=== PATIENT | female | born 1945 | race Caucasian/White ===

== ENCOUNTER 2018-02-21 23:38 | Inpatient (IN) | payer MEDICARE ==
[2018-02-21] MEDS ORDERED: Ondansetron PF 4 MG/2 ML Vial ONE (23:58)
[2018-02-22 00:23] LABS: #Lymphocytes 2.9 thou/uL (1.20-3.40); #Monocytes 1.2 thou/uL (0.11-0.59); #Neutrophils 12.4 thou/uL (1.40-6.50); %Basophils 0.1 % (0.0-1.0); %Eosinophils 0.2 % (0.0-10.0); %Lymphocytes 17.4 % (21.0-51.0); %Monocytes 7.3 % (0.0-10.0); %Neutrophils 74.9 % (42.0-75.0); Hemoglobin 15.1 g/dL (12.0-16.0); Mean Corpuscular HGB CONC 33.4 g/dL (32.0-36.0); Mean Corpuscular Hemoglobin 29.5 pg (27.0-31.0); Mean Corpuscular Volume 88.2 fL (78.0-98.0); Mean Platelet Volume 6.8 fL (7.4-10.4); Platelet Count 461 thou/uL (130-400); RBC Distribution Width 12.8 % (11.5-14.5); Red Blood Cell (RBC) Count 5.11 mill/uL (4.20-5.40); White Blood Cell (WBC) Count 16.5 thou/uL (4.8-10.8)
[2018-02-22 00:44] LABS: ALT (SGPT) Less than 7 U/L (8-55); AST (SGOT) 7 U/L (5-34); Albumin 3.7 g/dL (3.4-4.8); Alkaline Phosphatase 126 U/L (40-150); Anion Gap 27 mmol/L (10-20); BUN (Urea Nitrogen) 27 mg/dL (9.8-20.1); Bilirubin, Total 0.2 mg/dL (0.2-1.2); CK (CPK) 61 U/L (29-168); Calc. Creatinine Clearance 0 mL/min (70-130); Calcium 10.9 mg/dL (7.8-10.44); Carbon Dioxide 12 mmol/L (23-31); Chloride 101 mmol/L (98-107); Estimated GFR-MDRD 23; Globulin 4.1 g/dL (2.4-3.5); Glucose 449 mg/dL (83-110); Potassium 3.2 mmol/L (3.5-5.1); Protein, Total 7.8 g/dL (6.0-8.3); Sodium 137 mmol/L (136-145)
[2018-02-22 00:45] LABS: Bilirubin Large (Negative); Blood, Urine Small (Negative); Clarity CLEAR (Clear); Glucose, Urine (Dipstick) >=1000 mg/dL (Negative); Leukocyte Negative (Negative); Nitrite Negative (Negative); Protein, Urine (Dipstick) 30 mg/dL (Neg-Trace); Specific Gravity, Urine 1.029 (1.002-1.036); Urobilinogen 0.2 mg/dL (0.2-1.0); pH, Urine 5.5 (5.0-9.0)
[2018-02-22 00:47] LABS: Bacteria/HPF None Seen HPF (None Seen); Hyaline Casts/LPF 4-6 HYALINE CAST LPF (0-3 Hyaline); Pathc Cast-AUWi Flag 1.01 (0-2.49); RBC/HPF 0-3 HPF (0-3); Squamous Epithelial 0-3 HPF (0-3); WBC/HPF None Seen HPF (0-3)
[2018-02-22] MEDS ORDERED: Insulin Regular 300 UNITS/3 ML VIAL ONE (00:52)
[2018-02-22 02:30] LABS: Actual Bicarbonate (HCO3a) 18.3 mEq/L (22-28); Analyzer IN Cardio ER; CO2 Tension 44.3 mmHg (35.0-45.0); Calcium, Ionized 1.37 mmol/L (1.12-1.30); Carboxyhemoglobin (COHb) 0.4 gm% (0.0-3.0); Hemoglobin (Hb) 13.5 g/dL (12.0-16.0); O2 Tension (PaO2) 67.8 mmHg (> 70.0); Potassium - ABG Lab 2.95 mmol/L (3.70-5.30); pH, Arterial 7.23 (7.35-7.45)
[2018-02-22] MEDS ORDERED: Potassium Chloride 40 MEQ in Sodium Chloride 0.9% 250 ML 250 ML IVPB SCH (02:30)
[2018-02-22] MEDS ORDERED: Potassium Chloride 40 MEQ in Sodium Chloride 0.9% 500 ML IVPB SCH (02:30)
[2018-02-22 02:31] LABS: ALV-art Gradient 26.555 (0-20); Puncture Site LRA
[2018-02-22] MEDS ORDERED: D5 1/2 NS w/20 mEq KCL 1,000 ML IV PRN (02:32)
[2018-02-22] MEDS ORDERED: Sodium Chloride 0.9% 1,000 ML IV PRN ×4 (02:32)
[2018-02-22] MEDS ORDERED: Dextrose 5 %-0.45 % NaCl 1,000 ML IV PRN (02:32)
[2018-02-22] MEDS ORDERED: NS 0.9% w/ 20 MEQ KCL 1,000 ML IV PRN ×2 (02:32)
[2018-02-22] MEDS ORDERED: Acetaminophen 325 MG TAB PO PRN (02:32)
[2018-02-22] MEDS ORDERED: Ondansetron ODT 4 MG TAB PO PRN (02:32)
[2018-02-22] MEDS ORDERED: CCU Electrolyte Replacement 1 EACH IVPB ONE (02:32)
--- NOTE | 2018-02-22 02:42 | PDOC.FPRHP ---
- History of Present Illness Chief Complaint: DKA History of Present Illness: This is a 72 yo female with a pmh of DM2 who presents to the ed with a cc of lethargy and malaise. She states that she has been feeling bad for approximately 2-3 weeks at this point. She reports checking her sugar this morning and it being in the 500s. Her states that he gave her 70 units of an unknown insulin which did not correct her sugar and they then decided to come in. Pt reports not seeing the doctor or not taking medications for over 2 years. Her states she just did not want to do it. ED Course: 2 L NS bolus, 8 units of humulin R - Allergies/Adverse Reactions Allergies Allergy/AdvReac Type Severity Reaction Status Date / Time codeine Allergy Unverified 02/22/18 02:03 morphine Allergy Unverified 02/22/18 02:03 - History PMHx: DM 2 PSHx: Hysterectomy, cholecystectomy FHx:noncontributory Social: Denies A/D, reports current tobacco use - Review of Systems General: reports: fatigue, other (malaise). denies: fever/chills, weight/ appetite/sleep changes, night sweats Eyes: denies: eye pain, vision changes ENT: denies: nasal congestion, rhinorrhea Respiratory: denies: cough, congestion Cardiovascular: denies: chest pain, palpitation Gastrointestinal: denies: nausea, vomiting, diarrhea, constipation Skin: denies: rashes, lesions Musculoskeletal: denies: pain, tenderness Neurological: denies: numbness, syncope Psychological: denies: anxiety, depression - Vital signs BP: 115/67 HR: 100 RR: 19 Tmax: 97.6 Pox: 95% on ra Wt: 81 kg - Physical Exam Constitutional: NAD, other (appears lethargic) HEENT: normocephalic and atraumatic, other (dry mucus membranes) Neck: trachea midline, no JVD Chest: no-tender to palpation Heart: RRR, normal S1/S2, other (holosystolic murmur) Lungs: CTAB, good air movement, other (kussmaul breathing) Abdomen: soft, non-tender, bowel sounds present, no masses/distention Musculoskeletal: ROM grossly normal Neurological: no focal deficit Skin: other (poor turgor) Heme/Lymphatic: no unusual bruising or bleeding, no purpura Psychiatric: normal mood and affect, good judgment and insight FMR H&P: Results - Labs Result Diagrams: 02/22/18 03:39 02/22/18 03:39 Lab results: WBC 16.5 thou/uL (4.8-10.8) H 02/22/18 00:14 Hgb 15.1 g/dL (12.0-16.0) 02/22/18 00:14 Hct 45.1 % (36.0-47.0) 02/22/18 00:14 MCV 88.2 fL (78.0-98.0) 02/22/18 00:14 Plt Count 461 thou/uL (130-400) H 02/22/18 00:14 Neutrophils % 74.9 % (42.0-75.0) 02/22/18 00:14 ABG pH 7.23 (7.35-7.45) L* 02/22/18 02:20 ABG pCO2 44.3 mmHg (35.0-45.0) 02/22/18 02:20 ABG pO2 67.8 mmHg (> 70.0) 02/22/18 02:20 Sodium 137 mmol/L (136-145) 02/22/18 00:14 Potassium 3.2 mmol/L (3.5-5.1) L 02/22/18 00:14 Chloride 101 mmol/L (98-107) 02/22/18 00:14 Carbon Dioxide 12 mmol/L (23-31) L 02/22/18 00:14 BUN 27 mg/dL (9.8-20.1) H 02/22/18 00:14 Creatinine 2.15 mg/dL (0.6-1.1) H 02/22/18 00:14 Glucose 449 mg/dL (83-110) H 02/22/18 00:14 Lactic Acid 2.4 mmol/L (0.5-2.2) H 02/22/18 00:04 Calcium 10.9 mg/dL (7.8-10.44) H 02/22/18 00:14 Total Bilirubin 0.2 mg/dL (0.2-1.2) 02/22/18 00:14 AST 7 U/L (5-34) 12/21/18 00:14 ALT Less than 7 U/L (8-55) L 18 00:14 Alkaline Phosphatase 126 U/L (40-150) 02/22/18 00:14 Creatine Kinase 61 U/L (29-168) 02/22/18 00:14 Serum Total Protein 7.8 g/dL (6.0-8.3) 18 00:14 Albumin 3.7 g/dL (3.4-4.8) 02/22/18 00:14 Urine Ketones > or equal to 80 mg/dL (Negative) H 02/22/18 00:35 Urine Blood Small (Negative) H 02/22/18 00:35 Urine Nitrite Negative (Negative) 02/22/18 00:35 Ur Leukocyte Esterase Negative (Negative) 02/22/18 00:35 Urine RBC 0-3 HPF (0-3) 02/22/18 00:35 Urine WBC None Seen HPF (0-3) 02/22/18 00:35 Ur Squamous Epith Cells 0-3 HPF (0-3) 02/22/18 00:35 Urine Bacteria None Seen HPF (None Seen) 02/22/18 00:35 - Radiology Interpretation CT scan - head Status: image reviewed by me (no acute, abnormal intracranial process) FMR H&P: A/P - Problem List (1) DKA (diabetic ketoacidoses) Current Visit: Yes Status: Acute Code(s): E13.10 - OTH DIABETES MELLITUS WITH KETOACIDOSIS WITHOUT COMA Qualifiers: Diabetes mellitus type: type 2 (2) Type 2 diabetes mellitus Current Visit: Yes Status: Acute (3) Hypokalemia Current Visit: Yes Status: Acute Code(s): E87.6 - HYPOKALEMIA (4) ALEE (acute kidney injury) Current Visit: Yes Status: Acute Code(s): N17.9 - ACUTE KIDNEY FAILURE, UNSPECIFIED - Plan This is a 72 yo female with a pmh of DM2 DKA -Admit to IMCU -Initial anion gap of 24, bicarb 12, glucose 480, potassium of 3.2 -Pt received 2 L NS bolus and 8 units of humulin R in the ED -Correct hypokalemia -Start DKA protocol -Monitor BMP Hypokalemia -IV replacement -Monitor BMP ALEE -IVF resussication DM2 -Start long acting insulin once anion gap closes Code: DNAR Prophylaxis: heparin Family: at bedside and plan discussed with him Disposition: home in 1-2 days FMR H&P: Upper Level - Pertinent history 72F presenting for lethargy after not eating for two days. The patients reports her daughter two days ago and since that time she has been very somnolent and withdrawn. She reports that she stopped going to her PCP, Dr. Neff, over two years ago. She abruptly stopped taking all of her medications at that time, which included metformin, glipizide, and insulin. She has not taken any insulin in over two years, nor has she seen a healthcare provider in that interval. She denies any other PMH. ED: 2L NS, 8u insulin, 8mg Zofran - Pertinent findings WBC: 16.5 Na: 137 K: 3.2 Bicarb: 12 A BUN/Cr: 27/2.15 Glu: 449 LA: 2.4 AB.23/44/67 beta-HB: 6.4 - Plan Date/Time: 02/22/18 0241 IChristopher, have evaluated this patient and agree with findings/plan as outlined by rn internal medicine resident. Pertinent changes/additions are listed here. DKA: admit to [facility] for DKA protocol. reports he injected patient with 70u of his insulin at home before coming to ED. It is unknown what type of insulin this was. We will check another BMP after giving KCl. If anion gap persists will start insulin gtt with BMPs q2h. Hypokalemia: replete with 40 mEq now and continue per protocol. Monitor with BMPs q2h ALEE: unknown baseline level of kidney function. Expect improvement with IVF overnight.
[2018-02-22 02:46] LABS: ALT (SGPT) 9 U/L (8-55); AST (SGOT) 10 U/L (5-34); Albumin 3.3 g/dL (3.4-4.8); Alkaline Phosphatase 107 U/L (40-150); Anion Gap 23 mmol/L (10-20); BUN (Urea Nitrogen) 26 mg/dL (9.8-20.1); Bilirubin, Total 0.2 mg/dL (0.2-1.2); Calc. Creatinine Clearance 0 mL/min (70-130); Calcium 9.7 mg/dL (7.8-10.44); Carbon Dioxide 12 mmol/L (23-31); Chloride 107 mmol/L (98-107); Estimated GFR-MDRD 30; Globulin 3.2 g/dL (2.4-3.5); Glucose 305 mg/dL (83-110); Potassium 3.5 mmol/L (3.5-5.1); Protein, Total 6.5 g/dL (6.0-8.3); Sodium 138 mmol/L (136-145)
[2018-02-22] MEDS ORDERED: Potassium Chloride 40 MEQ in Premix Bag 1 BAG IVPB PRN (02:49)
[2018-02-22] MEDS ORDERED: Magnesium Oxide 400 MG TAB PO PRN ×2 (02:49)
[2018-02-22] MEDS ORDERED: Potassium Phosphate 12 MMOL in Sodium Chloride 0.9% 250 ML 250 ML IV PRN (02:49)
[2018-02-22] MEDS ORDERED: Potassium Phosphate 15 MMOL in Sodium Chloride 0.9% 250 ML 250 ML IV PRN (02:49)
[2018-02-22] MEDS ORDERED: Magnesium 2 GM/NS 0.9% 100 ML 2 GM in Premix Bag 1 BAG IVPB PRN (02:49)
[2018-02-22] MEDS ORDERED: Potassium Phosphate 9 MMOL in Sodium Chloride 0.9% 100 ML IVPB PRN (02:49)
[2018-02-22] MEDS ORDERED: Potassium Chloride 20 MEQ TAB PO PRN (02:49)
[2018-02-22] MEDS ORDERED: Potassium Chloride 40 MEQ in Sodium Chloride 0.9% 250 ML 250 ML IVPB PRN (02:49)
[2018-02-22] MEDS ORDERED: CCU ELECTROLYTE REPLACEMENT PROTOCOL FS PRN (02:49)
--- NOTE | 2018-02-22 03:00 | PDOC.EVN ---
Addendum - Attending - Attending Attestation Date/Time: 02/22/18 0256 I personally evaluated the patient and discussed the management with Dr. Carl /Pedro. I agree with the History, Examination, Assessment and Plan documented in their electronic H&P with any addition or exceptions noted below. Patient with history of uncontrolled T2DM who has been off hypoglycemic medications for near 2 years here with increasing lethargy, malaise, and elevated blood glucose. Per history, she recently lost her daughter and has not had much of an appetite. Blood sugar found to be elevated today, EMS called for transport to ER. gave some of his SQ insulin at home prior to arrival. Exam and laboratory studies are consistent with DKA likely in the setting of medication noncompliance and uncontrolled T2DM. No current evidence for infection as cause of trigger. Will admit to IMCU, begin on DKA protocol. WIll need to monitor K closely as she is borderline hypokalemic. Gap and acidosis improved some without IV insulin likely due to the bolus she received at home SQ. Will continue accuchecks, BMP monitoring. NPO until resolved. Will need to be restarted on anti-diabetic agents as well as receive diabetic teaching. She is hemodynamically stable at this time. Patient is DNR.
[2018-02-22 03:47] LABS: #Basophils 0.1 thou/uL (0.0-0.2); #Lymphocytes 3.7 thou/uL (1.20-3.40); #Monocytes 1.9 thou/uL (0.11-0.59); #Neutrophils 10.6 thou/uL (1.40-6.50); %Basophils 0.8 % (0.0-1.0); %Eosinophils 0.2 % (0.0-10.0); %Lymphocytes 22.5 % (21.0-51.0); %Monocytes 11.4 % (0.0-10.0); %Neutrophils 65.2 % (42.0-75.0); Hemoglobin 13.8 g/dL (12.0-16.0); Mean Corpuscular HGB CONC 33.9 g/dL (32.0-36.0); Mean Corpuscular Hemoglobin 29.4 pg (27.0-31.0); Mean Corpuscular Volume 86.8 fL (78.0-98.0); Mean Platelet Volume 6.5 fL (7.4-10.4); Platelet Count 404 thou/uL (130-400); RBC Distribution Width 12.7 % (11.5-14.5); Red Blood Cell (RBC) Count 4.67 mill/uL (4.20-5.40); White Blood Cell (WBC) Count 16.3 thou/uL (4.8-10.8)
[2018-02-22 04:04] LABS: Anion Gap 18 mmol/L (10-20); BUN (Urea Nitrogen) 22 mg/dL (9.8-20.1); Calc. Creatinine Clearance 0 mL/min (70-130); Carbon Dioxide 15 mmol/L (23-31); Chloride 107 mmol/L (98-107); Estimated GFR-MDRD 30; Glucose 245 mg/dL (83-110); Potassium 3.3 mmol/L (3.5-5.1); Sodium 137 mmol/L (136-145)
[2018-02-22] MEDS ORDERED: Insulin Glargine 15 UNITS in Pre-Filled Syringe 1 EACH SC SCH (04:30)
[2018-02-22 06:30] LABS: Lactic Acid 1.8 mmol/L (0.5-2.2)
[2018-02-22 06:46] LABS: Chloride 110 mmol/L (98-107); Potassium 3.3 mmol/L (3.5-5.1); Sodium 140 mmol/L (136-145)
[2018-02-22 06:47] LABS: Calcium 9.9 mg/dL (7.8-10.44); Glucose 175 mg/dL (83-110)
[2018-02-22 06:49] LABS: Anion Gap 16 mmol/L (10-20); Carbon Dioxide 17 mmol/L (23-31)
[2018-02-22 06:51] LABS: BUN (Urea Nitrogen) 21 mg/dL (9.8-20.1); Calc. Creatinine Clearance 0 mL/min (70-130); Estimated GFR-MDRD 34
--- NOTE | 2018-02-22 08:58 | CT ---
PRELIMINARY REPORT/[facility]/EMERGENTY AFTER-HOURS PROCEDURE CT Head Without Contrast EXAM DATE/TIME: 02/22/2018 12:26 AM CLINICAL HISTORY: 72 years old, female; Pain; Headache; Headache not specified; Patient HX: F 72 presents to ed with hy perglycemia d stick for ems 485. states that PT has not eaten in the past few days due to the pt's daughter passing away. PT received 80 units at 20: 00 and another 20 units at 2200. PT states that she feels "rotten" and denies pain. Reports nausea but has not vomited this evening. PT i s t 1 dm but has not been on any medications for the past 2 years. reports weakness and some disorientation. TECHNIQUE: Axial computed tomography images of the head/brain without contrast. COMPARISON: No relevant prior studies available. FINDINGS: Brain: No evidence of acute large vessel infarction. No evidence of acute intracranial hemorrhage, ex traxial fluid or midline shift. Mild low density changes within the white matter bilaterally. Cerebel lum atrophic; otherwise, posterior fossa structures within normal limits. Ventricles: Mild prominence of the cerebral sulci and ventricles. Bones/joints: Normal. No acute fracture. Sinuses: Normal as visualized. No acute sinusitis. Mastoid air cells: Normal as visualized. No mastoid effusion. Soft tissues: Normal. IMPRESSION: 1. No evidence of acute large vessel infarction. 2. No evidence of acute intracranial hemorrhage, extraxial fluid or midline shift. 3. Mild cerebral atrophy. 4. 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 Thank you for allowing us to participate in the care of your patient. Dictated and Authenticated by: Stef Drummond MD 02/22/2018 1:25 AM Central Time ([place] & [place]) FINAL REPORT CT BRAIN WITHOUT CONTRAST: Date: 02/21/18 FINDINGS/IMPRESSION: I agree with the preliminary report given by Sandhya. POS: OFF
[2018-02-22] MEDS ORDERED: Heparin 5,000 UNITS/ML VIAL SC SCH (09:00)
[2018-02-22 09:14] LABS: Chloride 111 mmol/L (98-107); Potassium 3.4 mmol/L (3.5-5.1); Sodium 140 mmol/L (136-145)
[2018-02-22 09:15] LABS: Calcium 9.9 mg/dL (7.8-10.44); Glucose 212 mg/dL (83-110)
[2018-02-22 09:17] LABS: Anion Gap 14 mmol/L (10-20); Carbon Dioxide 18 mmol/L (23-31)
[2018-02-22 09:19] LABS: BUN (Urea Nitrogen) 19 mg/dL (9.8-20.1); Calc. Creatinine Clearance 0 mL/min (70-130); Estimated GFR-MDRD 37
[2018-02-22] MEDS: Heparin 5,000 UNITS/ML VIAL SC SCH ×3 (11:40→20:51)
[2018-02-22] MEDS: Sodium Chloride 0.9% 1,000 ML IV SCH ×3 (11:43→20:50)
[2018-02-22 13:37] LABS: Anion Gap 13 mmol/L (10-20); BUN (Urea Nitrogen) 15 mg/dL (9.8-20.1); Calc. Creatinine Clearance 48 mL/min (70-130); Calcium 9.9 mg/dL (7.8-10.44); Carbon Dioxide 19 mmol/L (23-31); Chloride 114 mmol/L (98-107); Estimated GFR-MDRD 39; Glucose 208 mg/dL (83-110); Potassium 3.7 mmol/L (3.5-5.1); Sodium 142 mmol/L (136-145)
[2018-02-22] MEDS: Insulin Glargine 5 UNITS in Pre-Filled Syringe SC SCH (20:52)
[2018-02-23] MEDS: Sodium Chloride 0.9% 1,000 ML IV SCH ×4 (00:35→17:59)
--- NOTE | 2018-02-23 06:02 | PDOC.FM ---
- Subjective Subjective: 72 yo female seen at bedside this AM. Her is present for interview. Patient and her are not ideal historians. Patient's only medication she is supposed to be on is glipizide and insulin per the . However, she has not taken insulin in 2 years. Patient is wanting to go home this AM. Patient denies abdominal pain, chest pain, sob, n/v/d, or fevers. No other complaints this AM. - Objective MAR Reviewed: Yes Vital Signs & Weight: Vital Signs (12 hours) Temp Pulse Resp BP Pulse Ox 02/23/18 04:00 97.5 F L 92 17 127/55 L 94 L 02/23/18 00:31 97.2 F L 90 18 121/61 93 L 02/22/18 20:00 94 L 02/22/18 19:29 97.8 F 97 19 155/92 H 93 L Weight Weight 80.104 kg I&O: 02/21/18 02/22/18 02/23/18 06:59 06:59 06:59 Intake Total 1393 Output Total 350 Balance 1043 Result Diagrams: 02/22/18 03:39 02/23/18 07:35 Phys Exam - Physical Examination Constitutional: NAD HEENT: moist MMs Respiratory: no wheezing, clear to auscultation bilateral Cardiovascular: RRR 3/6 holosystolic murmur present Gastrointestinal: soft, non-tender, no distention, positive bowel sounds Musculoskeletal: no edema, pulses present Neurological: moves all 4 limbs Psychiatric: A&O x 3 Skin: no rash, cap refill <2 seconds Dx/Plan (1) DKA (diabetic ketoacidoses) Code(s): E13.10 - OTH DIABETES MELLITUS WITH KETOACIDOSIS WITHOUT COMA Status : Resolved Qualifiers: Diabetes mellitus type: type 2 (2) ALEE (acute kidney injury) Code(s): N17.9 - ACUTE KIDNEY FAILURE, UNSPECIFIED Status: Acute (3) Type 2 diabetes mellitus Status: Acute (4) Hypokalemia Code(s): E87.6 - HYPOKALEMIA Status: Resolved (5) Heart murmur Code(s): R01.1 - CARDIAC MURMUR, UNSPECIFIED Status: Acute - Plan Plan: DKA - Resolved - Admitted to IMCU, likely stable for transfer to floor today - Initial anion gap of 24, bicarb 12, glucose 480, potassium of 3.2 - DKA protocol discontinued - Monitor BMP pending this AM Hypokalemia - IV and oral replacement - Monitor BMP pending this AM ALEE - IVF - Repeat pending this AM DM2 - Seems poorly controlled - Glargine @ HS 5 u - Will initiate sliding scale insulin to determine insulin requirements throughout today - Will need to titrate up for better control - Will need close outpatient follow up Heart Murmur - Family is unaware - Asymptomatic - Will order ECHO to further work up Disposition: Stable, will likely be transferred to medical floor this AM. Addendum - Attending - Attending Attestation Date/Time: 02/23/18 1759 I personally evaluated the patient and discussed the management with Dr. Thomas I agree with the History, Examination, Assessment and Plan documented above with any addition or exceptions noted below- Patient without complaints. Afebrile VSS. A/P: DKA- resolved; started on basal insulin; continue sliding scale. Transfer to medical and continue to titrate insulin. 2) ALEE- resolved.
[2018-02-23] MEDS ORDERED: Dextrose 50% Abboject 50 ML SYRINGE SLOW IVP PRN (06:52)
[2018-02-23] MEDS ORDERED: HumaLOG 300 UNITS/3 ML VIAL SC PRN (06:52)
[2018-02-23] MEDS ORDERED: Dextrose 5% in Water 1,000 ML IV PRN (06:52)
[2018-02-23 08:19] LABS: Anion Gap 12 mmol/L (10-20); BUN (Urea Nitrogen) 8 mg/dL (9.8-20.1); Calc. Creatinine Clearance 66 mL/min (70-130); Carbon Dioxide 20 mmol/L (23-31); Chloride 111 mmol/L (98-107); Estimated GFR-MDRD 55; Glucose 187 mg/dL (83-110); Potassium 3.3 mmol/L (3.5-5.1); Sodium 140 mmol/L (136-145)
[2018-02-23] MEDS: Heparin 5,000 UNITS/ML VIAL SC SCH ×3 (09:50→21:08)
[2018-02-23] MEDS ORDERED: Potassium Chloride 20 MEQ TAB PO SCH (12:30)
[2018-02-23] MEDS: Insulin Glargine 5 UNITS in Pre-Filled Syringe SC SCH (21:06)
[2018-02-24] MEDS: Sodium Chloride 0.9% 1,000 ML IV SCH ×3 (02:56→09:23)
--- NOTE | 2018-02-24 06:07 | PDOC.FM ---
- Subjective Subjective: 72 yo female seen at bedside this AM. Per nursing staff it was communicated to keep her glucose around 200 and so sliding scale insulin doses were not given. Patient states she is ready to go home, but is agreeable to staying until it would be safe to go home. Patient denies any chest pain, n/v/d, fevers, chills, or cough. Her states she was up and walking and being successful doing that. No other complaints. - Objective Vital Signs & Weight: Vital Signs (12 hours) Temp Pulse Resp BP BP Pulse Ox 02/24/18 00:00 97.8 F 79 16 96/62 95 02/23/18 20:00 98.1 F 85 18 121/64 94 L Weight Admit Weight 82.191 kg Weight 82.191 kg I&O: 02/22/18 02/23/18 02/24/18 06:59 06:59 06:59 Intake Total 3993 560 Output Total 1040 Balance 2953 560 Result Diagrams: 02/22/18 03:39 02/24/18 07:54 Phys Exam - Physical Examination Constitutional: NAD HEENT: moist MMs Neck: supple, full ROM Respiratory: no wheezing, clear to auscultation bilateral Cardiovascular: RRR 3/6 holosystolic murmur present Gastrointestinal: soft, non-tender, no distention, positive bowel sounds Musculoskeletal: no edema, pulses present Neurological: non-focal, normal sensation, moves all 4 limbs Psychiatric: A&O x 3 Skin: no rash Dx/Plan (1) DKA (diabetic ketoacidoses) Code(s): E13.10 - OTH DIABETES MELLITUS WITH KETOACIDOSIS WITHOUT COMA Status : Resolved Qualifiers: Diabetes mellitus type: type 2 (2) ALEE (acute kidney injury) Code(s): N17.9 - ACUTE KIDNEY FAILURE, UNSPECIFIED Status: Resolved (3) Type 2 diabetes mellitus Status: Acute (4) Hypokalemia Code(s): E87.6 - HYPOKALEMIA Status: Resolved (5) Heart murmur Code(s): R01.1 - CARDIAC MURMUR, UNSPECIFIED Status: Acute - Plan Plan: DKA - Resolved - Admitted to IM and transferred to medical floor - Initial anion gap of 24, bicarb 12, glucose 480, potassium of 3.2 - DKA protocol discontinued Hypokalemia - IV and oral replacement - Monitor BMP pending this AM ALEE - IVF - Repeat pending this AM DM2 - Seems poorly controlled - Glargine @ HS 5 u - Nursing staff did not give sliding scale insulin per protocol on 02/23 - Will schedule 3u of insulin with meals to attempt better control - Will need to titrate up for better control - Will need close outpatient follow up Heart Murmur - Family is unaware - Asymptomatic - ECHO taken, but not read at this time - Will follow up with results. Disposition: Stable, will continue current plan of care. Patient is a possible discharge for today. Addendum - Attending - Attending Attestation Date/Time: 02/24/18 1032 I personally evaluated the patient and discussed the management with Dr. Thomas I agree with the History, Examination, Assessment and Plan documented above with any addition or exceptions noted below- Patient without complaints. Denies any CP/SOB/palpitations. Afebrile P160 BP 128/99 Exam repeated by me and significant for irr, irr rhythm with rapid rate. A/P: 1) New onset A-fib- code green called this morning for tachycardia; vitals stable apart from heart rate in 160-180s. Pt transferred to [facility] and started on cardizem drip. Replace electrolytes. Cardiology consulted. Start anticoagulation. Trend troponins. 2) type 2 DM- Did not receive sliding scale yesterday. Continue lantus; started on pre-meal with sliding scale.
[2018-02-24] MEDS: HumaLOG 300 UNITS/3 ML VIAL SC SCH ×3 (06:51→16:46)
[2018-02-24 08:26] LABS: Anion Gap 14 mmol/L (10-20); BUN (Urea Nitrogen) 5 mg/dL (9.8-20.1); Calc. Creatinine Clearance 79 mL/min (70-130); Calcium 8.7 mg/dL (7.8-10.44); Carbon Dioxide 17 mmol/L (23-31); Chloride 107 mmol/L (98-107); Estimated GFR-MDRD 68; Glucose 297 mg/dL (83-110); Sodium 135 mmol/L (136-145)
[2018-02-24] MEDS ORDERED: Enoxaparin Sodium 80 MG/0.8 ML SYRINGE SC SCH (09:03)
[2018-02-24] MEDS ORDERED: Diltiazem 125 MG in Sodium Chloride 0.9% 100 ML IVPB SCH (09:03)
[2018-02-24] MEDS ORDERED: Magnesium 2 GM/50 ML 2 GM in Premix Bag 1 BAG IVPB SCH (09:45)
--- NOTE | 2018-02-24 09:54 | PDOC.EVN ---
Event Note - Event Note Event Note: MELITA HERNÁNDEZ called to patient's room due to elevated HR. EKG showed A-fib with RVR. Patient was asymptomatic with normotensive BP. HR was in 170-200s. She denied chest pain, sob, lightheadedness, or feeling palpitations. Patient was immediately transferred to IMCU for Diltiazem bolus and drip. Patient also had Troponins, Mg, and ECHO ordered at time of code. Cardiology and Dr. Albright will be consulted for further management and evaluation. Dr. Jovel was present during code and is in agreement with plan.
[2018-02-24 10:06] LABS: CKMB 13.3 ng/mL (0-6.6)
[2018-02-24] MEDS: Enoxaparin Sodium 80 MG/0.8 ML SYRINGE SC SCH ×2 (10:07→20:57)
[2018-02-24] MEDS: HumaLOG 300 UNITS/3 ML VIAL SC PRN (10:11)
[2018-02-24] MEDS: Potassium Chloride 20 MEQ in Premix Bag 1 BAG IVPB SCH ×2 (10:12→14:37)
[2018-02-24] MEDS: Heparin 5,000 UNITS/ML VIAL SC SCH (10:39)
[2018-02-24] MEDS ORDERED: Amiodarone 150 MG in Dextrose 5% in Water 100 ML IVPB SCH (12:45)
[2018-02-24] MEDS: Amiodarone 450 MG in Dextrose 5% in Water 250 ML IVPB SCH ×2 (13:41→23:59)
[2018-02-24] MEDS ORDERED: Potassium Chloride 20 MEQ TAB PO SCH (14:15)
[2018-02-24 15:43] LABS: Troponin I 1.451 ng/mL (< 0.028)
[2018-02-24 18:25] LABS: Critical Call Chem Troponin I RESULT DECREASING; Troponin I 1.383 ng/mL (< 0.028)
[2018-02-24] MEDS ORDERED: Digoxin 0.5 MG/2 ML AMP SLOW IVP SCH (20:30)
[2018-02-24] MEDS: Insulin Glargine 5 UNITS in Pre-Filled Syringe SC SCH (20:56)
[2018-02-24 21:14] LABS: Troponin I 1.465 ng/mL (< 0.028)
--- NOTE | 2018-02-25 00:26 | CON ---
DATE OF CONSULTATION: HISTORY OF PRESENT ILLNESS: Cecelia Novoa is a 72-year-old white female with history of diabetes, however, she has not really taken any medications nor seen a doctor for several years. She denies ever having any chest, arm, neck, or jaw discomfort, but does have dyspnea on exertion, which the states started to really become bad ove the last 1 and 1-1/2 years. She has been feeling bad for several weeks and her took the blood sugar, it was 500. She came to the emergency room, was found to be in diabetic ketoacidosis and has been treated for that. Initially, she was on telemetry and was in sinus rhythm and then transferred to medical; however, developed a rapid heart rate. EKG shows atrial fibrillation with the rate of 170 per minute. She was then transferred back to telemetry. She is unaware of her heart beating rapidly. She only complains of dyspnea on exertion. PAST MEDICAL HISTORY: Diabetes. PAST SURGICAL HISTORY: Hysterectomy, cholecystectomy. MEDICATIONS AT HOME: None. ALLERGIES: 1. CODEINE. 2. MORPHINE. SOCIAL HISTORY: She smoked 2 packs per day until 2 to 3 weeks ago when she started feeling poorly. REVIEW OF SYSTEMS: 12-point review of systems is otherwise unremarkable. PHYSICAL EXAMINATION: VITAL SIGNS: Blood pressure 97/70, pulse of 158. HEENT: PERRL. NECK: Supple. CHEST: Reveals distant breath sounds. CARDIOVASCULAR: The patient has irregular rapid tachycardia. There is a 2/6 systolic ejection murmur along the left sternal border. ABDOMEN: Normal bowel sounds without tenderness or organomegaly. EXTREMITIES: Reveal 1+ pretibial edema. NEUROLOGICAL: Grossly intact, although the patient is somewhat lethargic. LABORATORY DATA: EKG reveals atrial fibrillation with rate of 170 per minute with nonspecific ST and T-wave changes. Echocardiogram revealed ejection fraction of 55% to 60% with evidence for diastolic dysfunction, mitral annular calcification, severe aortic stenosis with peak gradient of 88 mm, mean gradient of 53 mm and aortic valve area of 0.73 cm2, moderate aortic insufficiency, [id number] tricuspid regurgitation. Hemoglobin 13.8, hematocrit 40.6, white count 16,300, platelets 404,000. On admission, creatinine was 2.15, BUN 27. Creatinine is improved to 0.83, BUN from 27 to 5. TSH is normal with development of atrial fibrillation. Troponin I's have been checked and the most elevated one is 1.451. IMPRESSION: 1. Atrial fibrillation with fast ventricular response. The patient has been anticoagulated with 1 mg/kg of Lovenox b.i.d. She is currently on a Cardizem drip and amiodarone drip. 2. Severe aortic stenosis with exertional dyspnea for 1 and 1-1/2 years. 3. Diabetes. 4. Unknown cholesterol status. 5. Status post diabetic ketoacidosis. 6. Acute kidney injury, resolved. 7. Smoker. PLAN: The patient will be given intravenous digoxin 0.5 mg IV and another 6- hour 0.25 mg IV to try to slow her rate. Her most significant underlying problem, however, is the severe aortic stenosis with exertional dyspnea over the last 1 and 1-1/2 years. Certainly, her risk of sudden over the next 1 to 2 years is very high. She currently is DNR and all of this will need to be discussed at length over the next day or two to see what she would decide to do and how aggressive to be regarding her aortic stenosis. Job ID: [id number] [facility] HOSPITALOdalis
[2018-02-25] MEDS ORDERED: Digoxin 0.5 MG/2 ML AMP SLOW IVP SCH ×2 (03:00→15:45)
[2018-02-25 05:16] LABS: Anion Gap 15 mmol/L (10-20); BUN (Urea Nitrogen) 5 mg/dL (9.8-20.1); Calc. Creatinine Clearance 82 mL/min (70-130); Calcium 9.3 mg/dL (7.8-10.44); Carbon Dioxide 19 mmol/L (23-31); Cardiac Risk 4.7 (Less than 4.5); Chloride 104 mmol/L (98-107); Cholesterol 185 mg/dl (< 200 Desired); Estimated GFR-MDRD 71; Glucose 287 mg/dL (83-110); HDL Cholesterol 39 mg/dL (>60 Neg Risk); LDL Cholesterol, Calculated 116 mg/dL; Potassium 3.9 mmol/L (3.5-5.1); Sodium 134 mmol/L (136-145); Triglycerides 148 mg/dL (Less than 150)
[2018-02-25] MEDS: HumaLOG 300 UNITS/3 ML VIAL SC PRN (06:06)
--- NOTE | 2018-02-25 06:22 | PDOC.FM ---
- Subjective Subjective: 72 yo female seen at bedside this AM with her present. Patient had no acute changes overnight. She has been up and walking around. She has no real complaints. Patient states that she is wanting to go home. She did see Dr. Albright last night around 20:00. Patient and her state that they will be discussing her in the future to make decisions as far as treatment is concerned. Patient denied chest pain, sob, n/v/d, or weakness. No other complaints. - Objective Vital Signs & Weight: Vital Signs (12 hours) Temp Pulse Resp BP BP Pulse Ox 02/25/18 04:50 97.2 F L 149 H 12 143/99 H 97 02/25/18 03:08 141 H 02/25/18 00:17 98.4 F 141 H 16 115/52 L 99 02/24/18 20:56 163 H 02/24/18 19:59 98.4 F 158 H 22 H 97/70 96 02/24/18 19:57 98 Weight Admit Weight 82.191 kg Weight 82.599 kg I&O: 02/23/18 02/24/18 02/25/18 06:59 06:59 06:59 Intake Total 3993 2360 1968 Output Total 1040 400 Balance 2953 2360 1568 Result Diagrams: 02/22/18 03:39 02/25/18 04:37 Phys Exam - Physical Examination Constitutional: NAD HEENT: moist MMs Neck: supple, full ROM Respiratory: no wheezing, clear to auscultation bilateral Cardiovascular: irregular Tachycardic. 2/6 SHANTA left sternal border Gastrointestinal: soft, non-tender, no distention, positive bowel sounds Musculoskeletal: pulses present 1+ edema bilaterally Neurological: moves all 4 limbs Psychiatric: A&O x 3 Deviation from normal: Flat affect Skin: no rash Dx/Plan (1) DKA (diabetic ketoacidoses) Code(s): E13.10 - OTH DIABETES MELLITUS WITH KETOACIDOSIS WITHOUT COMA Status : Resolved Qualifiers: Diabetes mellitus type: type 2 (2) ALEE (acute kidney injury) Code(s): N17.9 - ACUTE KIDNEY FAILURE, UNSPECIFIED Status: Resolved (3) Type 2 diabetes mellitus Status: Acute (4) Aortic stenosis Code(s): I35.0 - NONRHEUMATIC AORTIC (VALVE) STENOSIS Status: Chronic (5) Elevated troponin Code(s): R74.8 - ABNORMAL LEVELS OF OTHER SERUM ENZYMES Status: Acute (6) Hypokalemia Code(s): E87.6 - HYPOKALEMIA Status: Resolved - Plan Plan: DKA - Resolved - Admitted to [facility] and transferred to medical floor - Initial anion gap of 24, bicarb 12, glucose 480, potassium of 3.2 - DKA protocol discontinued Hypokalemia - IV and oral replacement - resolved - Continue to monitor ALEE - IVF - resolved, continue to monitor DM2 - Seems poorly controlled, all accuchecks 180 and above. - Glargine @ HS 10 u - Initiated metformin 02/25 - Will schedule 6u of insulin with meals to attempt better control - Will need to titrate up for better control - Will need close outpatient follow up Aortic Stenosis - Found on ECHO - Patient reports exertional dyspnea for over one year - Defer to cardiology recommendations for replacement vs symptomatic treatment. Elevated Troponin - Cardiology aware - Likely due to demand ischemia Disposition: Stable, will continue current plan of care and coordinate with Cardiology team.
[2018-02-25] MEDS: HumaLOG 300 UNITS/3 ML VIAL SC SCH ×3 (08:32→16:34)
[2018-02-25] MEDS: metFORMIN XR 500 MG TAB PO SCH (08:32)
[2018-02-25] MEDS: Enoxaparin Sodium 80 MG/0.8 ML SYRINGE SC SCH ×2 (08:32→20:28)
--- NOTE | 2018-02-25 10:55 | PRG ---
DATE OF SERVICE: 02/25/2018 SUBJECTIVE: Ms. Novoa is a pleasant 72-year-old white female, noncompliant type 2 diabetic, who is admitted to the hospital, and diabetic ketoacidosis. Her DKA has resolved with fluids and intravenous insulin. We explained to her the importance of taking her insulin in the future. She is tolerating a near normal diet and will likely be ready for her discharge in a day or two. She was also noted to have a loud murmur on admission and followup echo revealed critical aortic stenosis. Cardiology is on board as she has also developed atrial fibrillation with RVR despite Cardizem, amiodarone, and digoxin. We will continue to follow the recommendations of Cardiology as well. In the event, her DKA has resolved, and she is now tolerating a normal diet. Job ID: [id number]
[2018-02-25] MEDS: Amiodarone 450 MG in Dextrose 5% in Water 250 ML IVPB SCH (16:48)
[2018-02-25] MEDS ORDERED: Insulin Glargine 10 UNITS in Pre-Filled Syringe 1 EACH SC SCH (21:00)
[2018-02-26 05:45] LABS: Anion Gap 12 mmol/L (10-20); BUN (Urea Nitrogen) Less than 4 mg/dL (9.8-20.1); Calc. Creatinine Clearance 85 mL/min (70-130); Calcium 8.9 mg/dL (7.8-10.44); Carbon Dioxide 24 mmol/L (23-31); Chloride 99 mmol/L (98-107); Estimated GFR-MDRD 73; Glucose 313 mg/dL (83-110); Magnesium 1.3 mg/dL (1.6-2.6); Potassium 3.4 mmol/L (3.5-5.1); Sodium 132 mmol/L (136-145)
[2018-02-26] MEDS: HumaLOG 300 UNITS/3 ML VIAL SC PRN (05:57)
[2018-02-26] MEDS ORDERED: Magnesium 2 GM/50 ML 2 GM in Premix Bag 1 BAG IVPB SCH (06:15)
--- NOTE | 2018-02-26 06:15 | PDOC.FM ---
- Subjective Subjective: 72 yo female seen at bedside this AM. Patient and are wanting to make it home today. They are counseled extensively on the need for further evaluation due to her A-fib with RVR. However, she did convert to NSR around 1800 yesterday. She denies any acute changes overnight. She does state that her right hand IV is burning and causing her some pain. Nursing staff report she does get fatigued and SOB when she was up and walking to the bathroom overnight. No other complaints. - Objective Vital Signs & Weight: Vital Signs (12 hours) Temp Pulse Resp BP BP Pulse Ox 02/26/18 03:52 98.0 F 86 20 118/53 L 96 02/26/18 00:00 98.2 F 80 16 129/79 96 02/25/18 20:00 97 02/25/18 19:34 98.0 F 86 18 143/80 H 97 Weight Admit Weight 82.191 kg Weight 82.599 kg I&O: 02/24/18 02/25/18 02/26/18 06:59 06:59 06:59 Intake Total 2360 1968 1205 Output Total 400 0 Balance 2360 1568 1205 Result Diagrams: 02/22/18 03:39 02/26/18 05:13 Phys Exam - Physical Examination Constitutional: NAD HEENT: moist MMs Neck: no nodes Respiratory: no wheezing, clear to auscultation bilateral Cardiovascular: RRR 2/6 SHANTA Gastrointestinal: soft, non-tender, no distention, positive bowel sounds Musculoskeletal: pulses present, edema present 1+ bilaterally Neurological: non-focal, moves all 4 limbs Psychiatric: A&O x 3 Skin: no rash, cap refill <2 seconds Dx/Plan (1) Atrial fibrillation with RVR Code(s): I48.91 - UNSPECIFIED ATRIAL FIBRILLATION Status: Resolved (2) DKA (diabetic ketoacidoses) Code(s): E13.10 - OTH DIABETES MELLITUS WITH KETOACIDOSIS WITHOUT COMA Status : Resolved Qualifiers: Diabetes mellitus type: type 2 (3) ALEE (acute kidney injury) Code(s): N17.9 - ACUTE KIDNEY FAILURE, UNSPECIFIED Status: Resolved (4) Type 2 diabetes mellitus Status: Acute (5) Aortic stenosis Code(s): I35.0 - NONRHEUMATIC AORTIC (VALVE) STENOSIS Status: Chronic (6) Elevated troponin Code(s): R74.8 - ABNORMAL LEVELS OF OTHER SERUM ENZYMES Status: Acute (7) Hypokalemia Code(s): E87.6 - HYPOKALEMIA Status: Resolved (8) Hypomagnesemia Code(s): E83.42 - HYPOMAGNESEMIA Status: Acute - Plan Plan: A-fib with RVR - now resolved, converted to NSR on 1800 on 02/25 and maintained - On digoxin daily - Appreciated Cardiology recommendations - Cardiology stated possible EP consultation, will await recs due to conversion to NSR DKA - Resolved - Admitted to [facility] and transferred to medical floor - Initial anion gap of 24, bicarb 12, glucose 480, potassium of 3.2 - DKA protocol discontinued Hypokalemia - IV and oral replacement - resolved - Continue to monitor 3.4 this AM - Will replete with Oral Potassium ALEE - IVF - resolved, continue to monitor DM2 - Seems poorly controlled, all accuchecks 180 and above. - Glargine @ HS 10 u - Initiated metformin 02/25 - Will schedule 6u of insulin with meals to attempt better control - Will need to titrate up for better control - Will need close outpatient follow up Aortic Stenosis - Found on ECHO - Patient reports exertional dyspnea for over one year - Defer to cardiology recommendations for replacement vs symptomatic treatment. Elevated Troponin - Cardiology aware - Likely due to demand ischemia Hypomagnesemia - 1.3 this AM - Will replete and continue to check Disposition: Stable, will continue current plan of care. Patient may be candidate for discharge today.
[2018-02-26] MEDS ORDERED: Potassium Chloride 20 MEQ TAB PO SCH (06:30)
[2018-02-26] MEDS: HumaLOG 300 UNITS/3 ML VIAL SC SCH ×3 (08:31→17:59)
[2018-02-26] MEDS: metFORMIN XR 500 MG TAB PO SCH (08:32)
[2018-02-26] MEDS: Enoxaparin Sodium 80 MG/0.8 ML SYRINGE SC SCH ×2 (08:32→21:33)
[2018-02-26] MEDS: Digoxin 0.125 MG TAB PO SCH (08:32)
[2018-02-26] MEDS: Amiodarone 450 MG in Dextrose 5% in Water 250 ML IVPB SCH (10:01)
--- NOTE | 2018-02-26 10:57 | PRG ---
DATE OF SERVICE: 02/26/2018 SUBJECTIVE: Ms. Novoa continues to look and feel improved. Her blood glucose levels are still elevated, but no longer exhibited any evidence of DKA. We will continue her on her subcu insulin regimen including Lantus and rapid acting pre-meal. I also discussed with the family her aortic valve disease and they have decision upon how they want to approach this problem. We can likely transfer her to a regular bed today in anticipation of discharge home tomorrow depending upon her decision regarding her aortic valve. Job ID: [id number]
[2018-02-26 11:26] LABS: Hemoglobin A1c 18.5 % (4.0-6.0)
[2018-02-26] MEDS ORDERED: Insulin Glargine 15 UNITS in Pre-Filled Syringe SC SCH (21:00)
[2018-02-26] MEDS: Amiodarone 200 MG TAB PO SCH (21:32)
--- NOTE | 2018-02-27 06:12 | PDOC.FM ---
- Subjective Subjective: 72 yo female seen at bedside this AM. Patient states that she will have a lot of help at home. She states that she has multiple neighbors and family members that can help her when she gets home. She and her have not decided what to do about her as of yet. Patient states that she has not had n/v/d, fevers , chills, or SOB. Patient states that she overall feels well and is agreeable to taking medication from now on. No other complaints. - Objective Vital Signs & Weight: Vital Signs (12 hours) Temp Pulse Resp BP Pulse Ox 02/27/18 04:00 97.3 F L 71 18 143/75 H 96 02/27/18 00:00 97.4 F L 61 16 121/70 97 02/26/18 20:00 95 02/26/18 19:37 98.4 F 76 18 114/59 L 95 Weight Admit Weight 82.191 kg Weight 82.871 kg I&O: 02/25/18 02/26/18 02/27/18 06:59 06:59 06:59 Intake Total 1968 1991 985 Output Total 400 600 100 Balance 1568 1391 885 Result Diagrams: 02/22/18 03:39 02/27/18 06:13 Phys Exam - Physical Examination Constitutional: NAD HEENT: moist MMs Neck: no nodes Respiratory: no wheezing, clear to auscultation bilateral Cardiovascular: RRR 2/6 SHANTA Gastrointestinal: soft, non-tender, no distention, positive bowel sounds Musculoskeletal: pulses present 1+ bilaterally Neurological: non-focal, normal sensation, moves all 4 limbs Lymphatic: no nodes Psychiatric: normal affect, A&O x 3 Skin: no rash, cap refill <2 seconds Dx/Plan (1) Atrial fibrillation with RVR Code(s): I48.91 - UNSPECIFIED ATRIAL FIBRILLATION Status: Resolved (2) DKA (diabetic ketoacidoses) Code(s): E13.10 - OTH DIABETES MELLITUS WITH KETOACIDOSIS WITHOUT COMA Status : Resolved Qualifiers: Diabetes mellitus type: type 2 (3) ALEE (acute kidney injury) Code(s): N17.9 - ACUTE KIDNEY FAILURE, UNSPECIFIED Status: Resolved (4) Type 2 diabetes mellitus Status: Acute (5) Aortic stenosis Code(s): I35.0 - NONRHEUMATIC AORTIC (VALVE) STENOSIS Status: Chronic (6) Elevated troponin Code(s): R74.8 - ABNORMAL LEVELS OF OTHER SERUM ENZYMES Status: Acute (7) Hypokalemia Code(s): E87.6 - HYPOKALEMIA Status: Resolved (8) Hypomagnesemia Code(s): E83.42 - HYPOMAGNESEMIA Status: Acute - Plan Plan: A-fib with RVR - now resolved, converted to NSR on 1800 on 02/25 and maintained - On oral Amiodarone an digoxin daily - Appreciated Cardiology recommendations - Cardiology recommended EP consultation, awaiting recs - HAS-BLED score of 1 - CHADSVASC score of 3 - Initiated Apixaban DKA - Resolved - Admitted to IMCU and transferred to medical floor - Initial anion gap of 24, bicarb 12, glucose 480, potassium of 3.2 - DKA protocol discontinued Hypokalemia - IV and oral replacement - resolved - Continue to monitor BMP pending this AM - Will replete with Oral Potassium ALEE - IVF - resolved, continue to monitor DM2 - Seems poorly controlled, HgbA1C 18.5 - Glargine @ HS 20 u - Initiated metformin 02/25 - Will schedule 9u of insulin with meals to attempt better control - Will need to titrate up for better control - Will need close outpatient follow up Aortic Stenosis - Found on ECHO - Patient reports exertional dyspnea for over one year - Defer to cardiology recommendations for replacement vs symptomatic treatment. Elevated Troponin - Cardiology aware - Likely due to demand ischemia Hypomagnesemia - Repeat pending this AM. - Will replete and continue to check Disposition: Stable, will continue current plan of care. Will coordinate discharge with Cardiology.
[2018-02-27 06:34] LABS: Anion Gap 15 mmol/L (10-20); BUN (Urea Nitrogen) Less than 4 mg/dL (9.8-20.1); Calc. Creatinine Clearance 90 mL/min (70-130); Calcium 9.1 mg/dL (7.8-10.44); Carbon Dioxide 26 mmol/L (23-31); Chloride 100 mmol/L (98-107); Estimated GFR-MDRD 77; Glucose 261 mg/dL (83-110); Potassium 3.1 mmol/L (3.5-5.1); Sodium 138 mmol/L (136-145)
--- NOTE | 2018-02-27 06:35 | PDOC.EVN ---
Event Note - Event Note Event Note: Transition of Care Note 02/27/18 Admission date 02/22/18 This is a 72 yo female with a pmh of DM2 who presents to the ed with a cc of lethargy and malaise. She states that she has been feeling bad for approximately 2-3 weeks at this point. She reports checking her sugar this morning and it being in the 500s. Her states that he gave her 70 units of an unknown insulin which did not correct her sugar and they then decided to come in. Pt reports not seeing the doctor or not taking medications for over 2 years. Her states she just did not want to do it. Patient was initiated on DKA protocol with rapid improvement in her condition. Patient had resolution of DKA and then was transitioned to subQ insulin. However , there was miscommunication with the nursing staff and they were under the impression not to give her any SSI and to keep her glucose around 200. That was counseled appropriately and SubQ insulin was resumed along with initiated metformin. This patient is a very poorly controlled diabetic with a HgbA1C found to be 18.5 at this hospitalization. Her basal insulin as well as meal time insulin has been steadily titrated up slowly to on 02/27 20 u Lantus at HS and 9 u Humalog at each meal with a correctional dose above that. She will likely need to continue to have her regimen titrated up daily and as an outpatient. On 02/24 at approximately 0930 patient had routine vitals checked and was found to be HR in 180s. An EKG was performed and showed she was in A-fib with RVR. Patient was started on Cardizem bolus with a drip titrated up to 15 ml/hr. Patient was then transitioned to Amiodarone and a cardiology consultation was placed. Dr. Albright then added in digoxin doses. However, she remained with a HR 130 and above. Then on 02/25 at 1800, patient converted to NSR and has maintained. Patient has been continued on daily oral Dixogin, Amiodarone, and Eliquis with maintenance of NSR. Patient was also found to have severe on ECHO performed while in the hospital. Patient and her have not decided on a treatment plan for that yet. Patient has been wanting to go home for several days. She has been counseled that due to the severity of her conditions that it would not be safe for her to go home as of yet. If patient continues to improve and Cardiology signs off, patient may be ready to go in next few days. On 02/27, Cardiology recommended EP consultation and awaiting those recommendations at this time. Patient has also required daily potassium and magnesium replenishment. I have put in for repeat BMP and Mg checks for 02/28. Please contact with any other questions or concerns.
[2018-02-27] MEDS ORDERED: Apixaban 5 MG TAB PO SCH (09:00)
[2018-02-27] MEDS: HumaLOG 300 UNITS/3 ML VIAL SC SCH ×3 (09:54→18:36)
[2018-02-27] MEDS: metFORMIN XR 500 MG TAB PO SCH (09:55)
[2018-02-27] MEDS: Amiodarone 200 MG TAB PO SCH ×2 (09:55→20:30)
[2018-02-27] MEDS: Enoxaparin Sodium 80 MG/0.8 ML SYRINGE SC SCH ×2 (09:56→20:29)
[2018-02-27] MEDS: Digoxin 0.125 MG TAB PO SCH (09:56)
[2018-02-27] MEDS: Metoprolol Tartrate 25 MG TAB PO SCH ×2 (09:57→20:30)
[2018-02-27] MEDS ORDERED: Magnesium Sulfate 2 GM in Sodium Chloride 0.9% 100 ML IVPB SCH (10:30)
--- NOTE | 2018-02-27 11:22 | PRG ---
DATE OF SERVICE: 02/27/2018 This is an addendum to the note of Dr. Contreras Thomas. Ms. Novoa is again awake and alert this morning, in no distress. Evidently, she has elected against any intervention of her aortic valve disease. Her blood glucose levels are improving, averaging around 150 to 200. Adjustments are being made in her insulin dosage in anticipation of discharge likely today or tomorrow. Job ID: [id number]
[2018-02-27] MEDS ORDERED: Magnesium 2 GM/50 ML 2 GM in Premix Bag 1 BAG IVPB SCH ×2 (11:30→14:30)
[2018-02-27] MEDS: Potassium Chloride 20 MEQ TAB PO SCH (11:40)
[2018-02-27] MEDS ORDERED: Furosemide 20 MG/2 ML VIAL SLOW IVP SCH (14:30)
--- NOTE | 2018-02-27 14:50 | CON ---
DATE OF CONSULTATION: 02/27/2018 SERVICE: Pulmonary Medicine. REASON FOR CONSULTATION: Respiratory failure. HISTORY OF PRESENT ILLNESS: The patient is a 72-year-old white female with past medical history significant for type 2 diabetes mellitus. She has medical noncompliance. For the last year, she was not taking any medication. She presented to the hospital with what looked like a hyperosmolar state. In the course of correcting this, she ended up developing an atrial fibrillation with RVR. She has rapid it down to the IMCU. She had a difficult time converting, but ultimately went into sinus rhythm. She was also discovered to have aortic stenosis. Her coronaries are going to be investigated likely on Sunday. She currently denies any fevers or chills. She has been able to get up and walk around the room. There has been no interval change to her condition. She denies any infectious symptoms like fevers, chills, nausea, vomiting, diarrhea, abdominal discomfort, dysuria, frequency, hot, red swollen joints, or rashes. PAST MEDICAL HISTORY: 1. Type 2 diabetes mellitus. 2. Atrial fibrillation with history of RVR. 3. Dyslipidemia. 4. Hypertension. PAST SURGICAL HISTORY: 1. Cholecystectomy. 2. Hysterectomy. FAMILY HISTORY: Noncontributory. SOCIAL HISTORY: Negative for alcohol, tobacco, or illicit drug use. She has no exposure to chemicals, dust, asbestos, or tuberculosis. ALLERGIES: CODEINE, MORPHINE. MEDICATIONS: List of her inpatient medications was reviewed. No specific updates were made at this time. REVIEW OF SYSTEMS: General, head, ears, eyes, nose, and throat, cardiovascular, respiratory, GI, , musculoskeletal, neurologic, and skin are negative except as mentioned in the HPI. PHYSICAL EXAMINATION: VITAL SIGNS: Afebrile. Pulse 74, blood pressure 174/96, respirations 16, and saturation 95% on room air. GENERAL: The patient is awake and alert, in no apparent distress. LUNGS: Excellent air entry. Crackles are present dependently. No prolonged expiratory phase or wheezing is appreciated. HEART: Normal rate, regular. ABDOMEN: Soft, nontender, and nondistended. Bowel sounds are positive. MUSCULOSKELETAL: No cyanosis or clubbing. There is 2+ pitting in the bilateral lower extremities. IMAGING STUDIES: 1. Echocardiogram demonstrates 55% ejection fraction. She has severe aortic stenosis noted. 2. CT of the brain demonstrates no acute intracranial abnormality. ASSESSMENT: 1. Type 2 diabetes mellitus. 2. Atrial fibrillation with rapid ventricular response. 3. Aortic stenosis, severe. DISCUSSION AND PLAN: The patient is going down for cardiac catheterization in 24 to 48 hours. During that time, the valve will be more fully investigated. Magnesium and potassium will be replaced today. We will continue diuresing her until she gets closer to euvolemia at this point. When she arrives on the floor, she will have no further requirements for inpatient Pulmonary Critical Care opinion, and I will sign off. Please call with additional questions or concerns moving forward. Job ID: [id number]
[2018-02-27] MEDS ORDERED: Insulin Glargine 20 UNITS in Pre-Filled Syringe 1 EACH SC SCH (21:00)
--- NOTE | 2018-02-28 06:16 | EKG ---
Test Reason : Blood Pressure : / mmHG Vent. Rate : 170 BPM Atrial Rate : 117 BPM P-R Int : 000 ms QRS Dur : 088 ms QT Int : 258 ms P-R-T Axes : 000 009 266 degrees QTc Int : 433 ms Atrial fibrillation with rapid ventricular response with premature ventricular or aberrantly conducte d complexes Marked ST abnormality, possible inferior subendocardial injury Abnormal ECG When compared with ECG of 22-FEB-2018 00:01, (Unconfirmed) Significant changes have occurred Confirmed by APOLINAR ZAIID ([id number]) on 02/28/2018 6:15:48 AM Referred By: JAKE Confirmed By:APOLINAR ZAIDI
[2018-02-28] MEDS: HumaLOG 300 UNITS/3 ML VIAL SC PRN ×2 (06:17→20:43)
[2018-02-28] MEDS ORDERED: Insulin Glargine 23 UNITS in Pre-Filled Syringe 1 EACH SC SCH ×2 (06:50→21:00)
--- NOTE | 2018-02-28 06:59 | PDOC.FM ---
- Subjective Subjective: No acute events overnight. No polyuria, blurred vision. No palpitations, chest pain, lightheadedness - Objective MAR Reviewed: Yes Vital Signs & Weight: Vital Signs (12 hours) Temp Pulse Resp BP Pulse Ox 02/28/18 04:00 98.4 F 66 15 139/80 96 02/28/18 00:00 97.8 F 69 20 121/57 L 97 02/27/18 20:00 97.8 F 68 19 118/68 98 Weight Admit Weight 82.191 kg Weight 82.508 kg I&O: 02/26/18 02/27/18 02/28/18 06:59 06:59 06:59 Intake Total 1990 1418 2079 Output Total 600 700 Balance 8106 929 2781 Result Diagrams: 02/22/18 03:39 02/28/18 07:54 Phys Exam - Physical Examination Constitutional: NAD HEENT: PERRLA, moist MMs Respiratory: no wheezing Cardiovascular: RRR, no significant murmur harsh systolic murmur Gastrointestinal: soft, non-tender Neurological: non-focal, moves all 4 limbs Psychiatric: normal affect, A&O x 3 Dx/Plan (1) Insulin dependent diabetes mellitus Code(s): E11.9 - TYPE 2 DIABETES MELLITUS WITHOUT COMPLICATIONS; Z79.4 - SUBWAY GUARD (CURRENT) USE OF INSULIN Status: Acute (2) Hypomagnesemia Code(s): E83.42 - HYPOMAGNESEMIA Status: Acute (3) Type 2 diabetes mellitus Status: Acute (4) ALEE (acute kidney injury) Code(s): N17.9 - ACUTE KIDNEY FAILURE, UNSPECIFIED Status: Resolved (5) Atrial fibrillation with RVR Code(s): I48.91 - UNSPECIFIED ATRIAL FIBRILLATION Status: Resolved (6) DKA (diabetic ketoacidoses) Code(s): E13.10 - OTH DIABETES MELLITUS WITH KETOACIDOSIS WITHOUT COMA Status : Resolved Qualifiers: Diabetes mellitus type: type 2 (7) Hypokalemia Code(s): E87.6 - HYPOKALEMIA Status: Acute - Plan Plan: 72 yo F non-compliant IDDM2 admitted for DKA with new onset Afib with RVR & severe aortic stenosis IDDM2 -uncontrolled, inc basal lantus to 23 units -continue humalog 9units, titrate accordingly -mild SS to cover -diabetic education New onset Afib with RVR -onset during hospital admission -rate & rhythm controlled on po digoxin, metoprolol tartrate, amiodarone, continue -Dr. Albright following, pending cardiac cath on 03/01 -NSR on tele monitor -asx & stable today, continue to monitor on tele Severe aortic stenosis -per echo on 02/24 -pending cardiac cath on 03/01 to further evaluate Hypokalemia -3.4 on 02/28, replaced -Monitor with AM BMP Dvt ppx: Lovenox Dispo: Stable. Glucose control. Pending cardiac cath on 03/01. Discussed with Dr. Jovel Addendum - Attending - Attending Attestation Date/Time: 02/28/18 9649 I personally evaluated the patient and discussed the management with Dr. Lambert I agree with the History, Examination, Assessment and Plan documented above with any addition or exceptions noted below- Patient without complaints. Feeling better. Afebrile VSS. A/P: 1) Type 2 DM- continue accuchecks; adjust insulin. 3) A-fib - resolved; continue current meds. 4) Aortic stenosis - plan for cardiac cath tomorrow.
[2018-02-28 08:28] LABS: Anion Gap 12 mmol/L (10-20); BUN (Urea Nitrogen) Less than 4 mg/dL (9.8-20.1); Calc. Creatinine Clearance 77 mL/min (70-130); Calcium 9.2 mg/dL (7.8-10.44); Carbon Dioxide 27 mmol/L (23-31); Chloride 99 mmol/L (98-107); Estimated GFR-MDRD 65; Glucose 254 mg/dL (83-110); Magnesium 1.8 mg/dL (1.6-2.6); Potassium 3.4 mmol/L (3.5-5.1); Sodium 135 mmol/L (136-145)
[2018-02-28] MEDS ORDERED: Furosemide 80 MG TAB PO SCH (08:45)
[2018-02-28] MEDS ORDERED: Communication Order-Pharmacy FS SCH (08:45)
[2018-02-28] MEDS ORDERED: Furosemide 20 MG/2 ML VIAL SLOW IVP SCH (09:00)
[2018-02-28] MEDS ORDERED: Furosemide 40 MG TAB PO SCH (09:00)
[2018-02-28] MEDS: HumaLOG 300 UNITS/3 ML VIAL SC SCH ×3 (09:05→17:32)
[2018-02-28] MEDS: Digoxin 0.125 MG TAB PO SCH (09:07)
[2018-02-28] MEDS: Amiodarone 200 MG TAB PO SCH ×2 (09:07→20:40)
[2018-02-28] MEDS: Metoprolol Tartrate 25 MG TAB PO SCH ×2 (09:07→20:39)
[2018-02-28] MEDS: Sodium Chloride 0.9% 1,000 ML IV SCH ×2 (09:08→22:44)
[2018-02-28] MEDS: Aspirin 81 mg Enteric Coated Tablet PO SCH (09:12)
[2018-02-28] MEDS ORDERED: Potassium Chloride 20 MEQ TAB PO SCH ×2 (09:30→16:00)
[2018-02-28] MEDS: Potassium Chloride 20 MEQ TAB PO SCH (11:19)
--- NOTE | 2018-02-28 12:27 | PRG ---
DATE OF SERVICE: 02/28/2018 SERVICE: Pulmonary Medicine. INTERVAL HISTORY: The patient continues to breathe comfortably. She denies any current chest pain, fevers, or chills. Otherwise, there has been no interval change to her condition. PHYSICAL EXAMINATION: VITAL SIGNS: Afebrile, pulse 68, blood pressure 128/66, respirations 17, and saturation 93% on room air. GENERAL: The patient is awake, alert, in no apparent distress. LUNGS: Decent air entry. Dependent crackles are minimal. HEART: Normal rate regular. ABDOMEN: Soft, nontender, and nondistended. Bowel sounds are positive. MUSCULOSKELETAL: No cyanosis or clubbing. She has 2+ pitting in the bilateral lower extremities, which is a little better today. GENITOURINARY: No Sanchez. NEUROLOGIC: Grossly nonfocal. LABORATORY DATA: Sodium 135, potassium 3.4. Basic metabolic profile, magnesium is otherwise unremarkable. ASSESSMENT: 1. Atrial fibrillation with rapid ventricular response, returned to sinus rhythm. 2. Type 2 diabetes mellitus. 3. Aortic stenosis, severe. DISCUSSION AND PLAN: We will continue to diurese her gently through time. Potassium will be replaced today. She remained stable for transition out of the ICU to the Telemetry unit. Pulmonary will continue to follow in this location, but when she arrives on the floor, I will sign off. Please call with additional questions or concerns moving forward. Job ID: [id number]
[2018-02-28 12:43] VITALS: BMI 29.3
[2018-02-28] MEDS: Atorvastatin Calcium 40 MG TAB PO SCH (20:39)
--- NOTE | 2018-03-01 05:38 | PDOC.FM ---
- Subjective Subjective: No acute events overnight. Denies chest pain, lightheadedness, palpitations, poluria. Feels well. - Objective MAR Reviewed: Yes Vital Signs & Weight: Vital Signs (12 hours) Temp Pulse Resp BP Pulse Ox 03/01/18 04:00 98.3 F 60 16 145/54 H 95 03/01/18 00:00 98.2 F 56 L 16 134/55 L 97 02/28/18 20:00 96 02/28/18 19:36 97.4 F L 71 14 145/50 H 96 Weight Admit Weight 80.104 kg Weight 82.508 kg I&O: 02/27/18 02/28/18 03/01/18 06:59 06:59 06:59 Intake Total 1419 2080 Output Total 700 Balance 719 2080 Result Diagrams: 02/22/18 03:39 03/01/18 05:14 Phys Exam - Physical Examination Constitutional: NAD HEENT: PERRLA, moist MMs Neck: full ROM Respiratory: no wheezing, no rales, no rhonchi Cardiovascular: RRR severe aortic systolic murmur Gastrointestinal: soft, non-tender Neurological: non-focal, moves all 4 limbs Psychiatric: A&O x 3 Deviation from normal: depressed affect Dx/Plan (1) Aortic stenosis Code(s): I35.0 - NONRHEUMATIC AORTIC (VALVE) STENOSIS Status: Chronic (2) Insulin dependent diabetes mellitus Code(s): E11.9 - TYPE 2 DIABETES MELLITUS WITHOUT COMPLICATIONS; Z79.4 - LONG-TERM (CURRENT) USE OF INSULIN Status: Acute (3) Type 2 diabetes mellitus Status: Chronic (4) ALEE (acute kidney injury) Code(s): N17.9 - ACUTE KIDNEY FAILURE, UNSPECIFIED Status: Resolved (5) Atrial fibrillation with RVR Code(s): I48.91 - UNSPECIFIED ATRIAL FIBRILLATION Status: Resolved (6) DKA (diabetic ketoacidoses) Code(s): E13.10 - OTH DIABETES MELLITUS WITH KETOACIDOSIS WITHOUT COMA Status : Resolved Qualifiers: Diabetes mellitus type: type 2 (7) Hypokalemia Code(s): E87.6 - HYPOKALEMIA Status: Resolved (8) Hypomagnesemia Code(s): E83.42 - HYPOMAGNESEMIA Status: Resolved (9) Grief at loss of child Code(s): F43.21 - ADJUSTMENT DISORDER WITH DEPRESSED MOOD; Z63.4 - DISAPPEARANCE AND OF FAMILY MEMBER Status: Acute - Plan Plan: 72 yo F non-compliant IDDM2 admitted for DKA with new onset Afib with RVR & severe aortic stenosis IDDM2 -Inc lantus 26 units -continue humalog 9units -mild SS to cover -diabetic education New onset Afib with RVR -onset during hospital admission -rate & rhythm controlled on po digoxin, metoprolol tartrate, amiodarone, continue regimen -Dr. Albright following, pending cardiac cath on 03/01 -NSR on tele monitor -asx & stable today, continue to monitor on tele Severe aortic stenosis -per echo on 02/24 -pending cardiac cath on 03/01 to further evaluate Grief -Lost daughter a week ago -Denies thoughts of self harm -MD aware, advised to f/u outpt with PCP Hypokalemia, resolved Dvt ppx: Lovenox Dispo: Stable. Glucose control. Pending cardiac cath on 03/01. Discussed with Dr. Jovel Addendum - Attending - Attending Attestation Date/Time: 03/01/18 8882 I personally evaluated the patient and discussed the management with Dr. Lambert I agree with the History, Examination, Assessment and Plan documented above with any addition or exceptions noted below- Patient without complaints. Afebrile VSS. A/P: 1) DKA- resolved. 2) Type 2 DM - BG improved; continue current insulin. 3) Afib with RVR - resolved. 4) Aortic stenosis - plan for cath today. Further plan as per cardiology after cath.
[2018-03-01] MEDS: Sodium Chloride 0.9% 1,000 ML IV SCH (05:49)
[2018-03-01] MEDS: Metoprolol Tartrate 25 MG TAB PO SCH ×2 (05:50→20:26)
[2018-03-01 05:51] LABS: Anion Gap 16 mmol/L (10-20); BUN (Urea Nitrogen) 4 mg/dL (9.8-20.1); Calc. Creatinine Clearance 79 mL/min (70-130); Calcium 9.3 mg/dL (7.8-10.44); Carbon Dioxide 28 mmol/L (23-31); Chloride 96 mmol/L (98-107); Estimated GFR-MDRD 69; Glucose 226 mg/dL (83-110); Potassium 3.6 mmol/L (3.5-5.1); Sodium 136 mmol/L (136-145)
[2018-03-01] MEDS ORDERED: Insulin Glargine 26 UNITS in Pre-Filled Syringe 1 EACH SC SCH (08:05)
[2018-03-01] MEDS: HumaLOG 300 UNITS/3 ML VIAL SC SCH ×3 (08:22→18:06)
[2018-03-01 10:17] LABS: Magnesium 1.4 mg/dL (1.6-2.6)
[2018-03-01] MEDS: Aspirin 81 mg Enteric Coated Tablet PO SCH (10:53)
[2018-03-01] MEDS: Digoxin 0.125 MG TAB PO SCH ×2 (10:53→10:59)
[2018-03-01] MEDS: Furosemide 40 MG TAB PO SCH (10:54)
[2018-03-01] MEDS: Amiodarone 200 MG TAB PO SCH ×2 (10:54→20:26)
[2018-03-01] MEDS ORDERED: Potassium Chloride 20 MEQ TAB PO SCH (11:00)
[2018-03-01] MEDS ORDERED: Magnesium Sulfate 4 GM in Sodium Chloride 0.9% 250 ML 250 ML IVPB SCH ×2 (11:00→16:00)
--- NOTE | 2018-03-01 11:16 | PRG ---
DATE OF SERVICE: 03/01/2018 SERVICE: Pulmonary Medicine. INTERVAL HISTORY: The patient is doing great from respiratory standpoint. She denies any current chest pain, fevers, or chills. She has no overnight events. Her lower extremity swelling is improving. She is going to go for catheterization at some point today. PHYSICAL EXAMINATION: VITAL SIGNS: Afebrile. Pulse 59, blood pressure 146/63, respirations 15, O2 saturation 93% on room air. GENERAL: The patient is awake and alert, in no apparent distress. LUNGS: Excellent air entry. There is no prolonged expiratory phase or wheezing. Minimal dependent crackles remain. HEART: Normal rate and regular. ABDOMEN: Soft, nontender, and nondistended. Bowel sounds are positive. MUSCULOSKELETAL: No cyanosis or clubbing. There is 1+ pitting in the bilateral lower extremities. NEUROLOGIC: Grossly nonfocal. LABORATORY DATA: Potassium 3.6, magnesium 1.4. Otherwise, basic metabolic profile is unremarkable. ASSESSMENT: 1. Atrial fibrillation with rapid ventricular response, returned to sinus rhythm. 2. Type 2 diabetes mellitus. 3. Aortic stenosis, severe. DISCUSSION AND PLAN: The patient is going for cardiac catheterization today. At this point, she remains stable for transition out of the IMCU to the medical unit. Pulmonary/Critical Care will continue to follow along. Magnesium and potassium will be replaced today. Job ID: [id number]
[2018-03-01] MEDS ORDERED: Iopamidol 370 76% 100 ML VIAL ONE (12:48)
[2018-03-01] MEDS ORDERED: Iopamidol 370 76% 50 ML VIAL FS ONE (12:48)
[2018-03-01] MEDS ORDERED: Heparin 10,000 UNITS/1 ML VIAL ONE (14:37)
[2018-03-01] MEDS ORDERED: Fentanyl 100 MCG/2 ML VIAL ONE (14:37)
[2018-03-01] MEDS ORDERED: Midazolam HCl 2 mg/2 ml Vial ONE (14:38)
[2018-03-01] MEDS ORDERED: Lidocaine 1% (PF) 30 ML VIAL ONE ×3 (14:49→15:10)
[2018-03-01] MEDS ORDERED: Nitroglycerin 0.4 MG TAB (25 Tab Bottle) SL PRN (16:57)
[2018-03-01] MEDS ORDERED: Sodium Chloride 0.9% 1,000 ML IV SCH (16:59)
[2018-03-01] MEDS ORDERED: Sodium Chloride 0.9% 200 ML IV PRN (17:00)
[2018-03-01] MEDS ORDERED: cloNIDine 0.1 MG TAB PO SCH (18:45)
[2018-03-01] MEDS: Atorvastatin Calcium 40 MG TAB PO SCH (20:26)
[2018-03-02 05:31] LABS: Anion Gap 12 mmol/L (10-20); BUN (Urea Nitrogen) 4 mg/dL (9.8-20.1); Calc. Creatinine Clearance 75 mL/min (70-130); Calcium 8.9 mg/dL (7.8-10.44); Carbon Dioxide 30 mmol/L (23-31); Chloride 99 mmol/L (98-107); Estimated GFR-MDRD 64; Glucose 119 mg/dL (83-110); Potassium 3.7 mmol/L (3.5-5.1); Sodium 137 mmol/L (136-145)
--- NOTE | 2018-03-02 05:57 | PDOC.FM ---
- Subjective Subjective: Cardiac cath yesterday evening. Doing well today, no complaints. NAEO. - Objective MAR Reviewed: Yes Vital Signs & Weight: Vital Signs (12 hours) Temp Pulse Resp BP BP BP Pulse Ox 03/02/18 05:00 53 L 105/63 03/02/18 04:00 97.7 F 53 L 18 91/40 L 95 03/02/18 02:00 52 L 94/42 L 03/02/18 01:30 53 L 90/56 L 03/02/18 01:00 49 L 16 83/46 L 95 03/02/18 00:00 97.6 F 80 18 103/43 L 94 L 03/01/18 22:00 50 L 18 96/50 L 96 03/01/18 21:00 64 20 90/49 L 95 03/01/18 20:30 119/61 03/01/18 20:00 95 03/01/18 19:49 98.2 F 82 22 H 139/70 95 03/01/18 18:48 163/79 H Weight Admit Weight 80.104 kg Weight 80.881 kg I&O: 02/28/18 03/01/18 03/02/18 06:59 06:59 06:59 Intake Total 2080 320 1676 Output Total 925 Balance 2080 320 751 Result Diagrams: 02/22/18 03:39 03/02/18 04:55 Phys Exam - Physical Examination Constitutional: NAD HEENT: moist MMs Respiratory: no wheezing, clear to auscultation bilateral bradycardic, severe aortic systolic murmur Gastrointestinal: soft, non-tender Neurological: non-focal, moves all 4 limbs Psychiatric: normal affect, A&O x 3 Deviation from normal: left arm purpura Dx/Plan (1) Aortic stenosis Code(s): I35.0 - NONRHEUMATIC AORTIC (VALVE) STENOSIS Status: Chronic (2) Insulin dependent diabetes mellitus Code(s): E11.9 - TYPE 2 DIABETES MELLITUS WITHOUT COMPLICATIONS; Z79.4 - SKILLED NURSING (CURRENT) USE OF INSULIN Status: Acute (3) Type 2 diabetes mellitus Status: Chronic (4) ALEE (acute kidney injury) Code(s): N17.9 - ACUTE KIDNEY FAILURE, UNSPECIFIED Status: Resolved (5) Atrial fibrillation with RVR Code(s): I48.91 - UNSPECIFIED ATRIAL FIBRILLATION Status: Resolved (6) DKA (diabetic ketoacidoses) Code(s): E13.10 - OTH DIABETES MELLITUS WITH KETOACIDOSIS WITHOUT COMA Status : Resolved Qualifiers: Diabetes mellitus type: type 2 (7) Hypokalemia Code(s): E87.6 - HYPOKALEMIA Status: Resolved (8) Hypomagnesemia Code(s): E83.42 - HYPOMAGNESEMIA Status: Resolved (9) Grief at loss of child Code(s): F43.21 - ADJUSTMENT DISORDER WITH DEPRESSED MOOD; Z63.4 - DISAPPEARANCE AND OF FAMILY MEMBER Status: Acute - Plan Plan: 72 yo F non-compliant F with IDDM2 initially admitted for DKA, now resolved; new onset afib RVR with return to NSR and severe aortic stenosis s/p diagnostic cardiac catheterization. IDDM2 -Improved,lantus 28 units, continue humalog 9units -mild SS to cover -diabetic education New onset Afib with RVR -onset during hospital admission -rate & rhythm controlled on po digoxin, metoprolol tartrate, amiodarone, continue regimen -NSR on tele monitor -asx & stable today, continue to monitor on tele -bradycardic & low BP- hold AM metoprolol dose unless otherwise direct by cardiology Severe aortic stenosis -per echo on 02/24 -s/p cardiac cath 03/01 -cardiovascular surgery consulted, recs appreciated Grief -Lost daughter a week ago -Denies thoughts of self harm -MD aware, advised to f/u outpt with PCP Hypomangesemia, resolved Hypokalemia, resolved DKA, resolved Dvt ppx: Lovenox Dispo: Stable. Continue glucose control. s/p cardiac cath on 03/01. Pending cardiovascular surgery recs. Discussed with Dr. Caro Addendum - Attending - Attending Attestation Date/Time: 03/02/18 [id number] I personally evaluated the patient and discussed the management with Dr. Lambert I agree with the History, Examination, Assessment and Plan documented above with any addition or exceptions noted below. CT to evaluate for possible intervention options Regard Aortic Stenosis noted breast mass will need further evaluation. Patient with noted grieving process s/p recent loss of Daughter unexpectedly.
[2018-03-02] MEDS: Furosemide 40 MG TAB PO SCH (08:13)
[2018-03-02] MEDS: Aspirin 81 mg Enteric Coated Tablet PO SCH (08:13)
[2018-03-02] MEDS: Metoprolol Tartrate 25 MG TAB PO SCH (08:46)
[2018-03-02] MEDS: Amiodarone 200 MG TAB PO SCH (10:24)
[2018-03-02] MEDS: Digoxin 0.125 MG TAB PO SCH (10:24)
[2018-03-02] MEDS: HumaLOG 300 UNITS/3 ML VIAL SC SCH ×3 (10:25→18:02)
--- NOTE | 2018-03-02 13:09 | PDOC.CTH ---
Cardiology Progress Note - Subjective No complaints. No CP, SOB, palpitations. Pulse down to 50s overnight. Patient asymptomatic but nurses held Toprol. - Objective Vital Signs Temp Pulse Resp BP BP BP BP 03/02/18 11:49 98.2 F 63 18 113/87 03/02/18 10:24 64 03/02/18 07:35 98.1 F 51 L 17 103/63 03/02/18 07:16 97.8 F 55 L 102/52 L 03/02/18 05:00 53 L 105/63 03/02/18 04:00 97.7 F 53 L 18 91/40 L 03/02/18 02:00 52 L 94/42 L 03/02/18 01:30 53 L 90/56 L Pulse Ox 03/02/18 11:49 93 L 03/02/18 10:24 03/02/18 07:35 94 L 03/02/18 07:16 95 03/02/18 05:00 03/02/18 04:00 95 03/02/18 02:00 03/02/18 01:30 Admit Weight 176 lb 9.6 oz Weight 178 lb 5 oz 03/01/18 03/02/18 03/03/18 06:59 06:59 06:59 Intake Total 320 1676 Output Total 925 Balance 320 751 - Physical Examination General/Neuro: alert & oriented x3 Neck: no JVD present Lungs: CTA Heart: RRR Abdomen: NT/ND Extremities: other: (trace bilateral OSIEL) - Telemetry Telemetry Rhythm: SB 50s - Labs Result Diagrams: 02/22/18 03:39 03/02/18 04:55 Troponin/CKMB CK-MB (CK-2) 13.3 ng/mL (0-6.6) H* 02/24/18 09:08 Troponin I 1.465 ng/mL (< 0.028) H* 02/24/18 20:41 - Assessment/Plan 1. Severe 2. CAD 3. Parox AF 4. PAD with bilateral iliac occlusion Awaiting CVS consult. Patient would like to go home and return for AVR. Would resume Eliquis prior to d/c. Stop pre-op per CVA. Decrease Amio to 200mg BID.
--- NOTE | 2018-03-02 14:55 | CON ---
DATE OF CONSULTATION: 03/02/2018 REASON FOR CONSULTATION: Evaluate the patient for AVR/CABG. HISTORY OF PRESENT ILLNESS: Ms. Novoa is a 72-year-old woman, who is admitted to the hospital on 02/21 through the emergency department. Her states that she was not feeling well. They checked her blood sugar and it was over 500. She was given 70 units of an unknown insulin. This did not reduce her blood sugar, therefore she was brought to the hospital. Of note, the patient has not been taking any of her medications for the past 2 years. She just felt like she did not need to take them anymore. She also has not seen her doctor, Dr. Kristan Neff over 2 years - she got tired of waiting in the waiting room and decided she did not need to see Dr. Neff anymore. Her daughter a couple of weeks prior to her coming to the hospital, which she contributes to her feeling bad. She does not really do much at home. We tried to talk about her activities from a physiologic standpoint at home, she would refer back to activity she did 4 to 5 years ago and her would correct her telling her that was 4 to 5 years ago and she would become upset with him. She essentially sits around the house. She does cook some and does laundry, but other than that, does not do much of anything. She is very happy, sitting, watching television and sitting on the front porch. At the time of her admission, she did not complain of any chest pain or shortness of breath, but with questioning, she gets short of breath just walking across the house that she lives in. She has never had chest pain. She has no previous cardiac history. Echocardiogram was performed at the time of admission, this just showed ejection fraction of 55% to 60%. She underwent cardiac catheterization due to the findings of aortic stenosis on echo - aortic valve area of 0.74 and a peak velocity across the aortic valve was 768 cm/second. Odoz-rw-jonr gradient was 88 and mean gradient was 53 on echo. Cardiac catheterization just showed circumflex and right coronary artery disease with a potential bypassable target of an obtuse marginal and PDA. Her aortic valve area is 0.46. A catheterization with a mean and peak gradient consistent with her echo. Currently, the patient is resting comfortably in bed. She says she does not have any symptoms, but again she is completely inactive at home. PAST MEDICAL HISTORY: 1. Diabetes mellitus - untreated with an admission glucose of 297 and a hemoglobin A1c of 18.5. 2. Coronary artery disease. Peak troponin was 1.46 - catheterization just showed two-vessel disease. 3. Dyslipidemia - total cholesterol is 185 with an LDL of 116, HDL of 39. 4. Hypertension. 5. Severe deconditioning. PAST SURGICAL HISTORY: 1. Hysterectomy. 2. Cholecystectomy - when questioned about her surgical history, she is very evasive and does not really give much good information as to her anesthetic history or her recovery from these surgeries in the past. She does state she has had multiple infections after surgery and really does not do well after a general anesthetic. SOCIAL HISTORY: She smoked up until the time of admission. She does not use alcohol. ALLERGIES: CODEINE AND MORPHINE. REVIEW OF SYSTEMS: Ten-point review of systems is performed and is negative except as above. PHYSICAL EXAMINATION: GENERAL: This is a well-developed, elderly-appearing woman, resting comfortably in bed. VITAL SIGNS: Current vital signs; temperature is 98.2, pulse is 63 and regular, blood pressure is 113/87. Height is 5 feet 6 inches, weight is 178 pounds. BSA is 1.94. HEENT: Sclerae are nonicteric. Pupils are equal and round bilaterally. NECK: Supple. I cannot auscultate a carotid bruit. CHEST: Clear with distant breath sounds bilaterally. HEART: Rhythm is regular. She has a high-pitched murmur heard throughout the precordium. ABDOMEN: Soft and nontender. EXTREMITIES: She has no palpable pulses in her legs - she was found to have occluded iliac arteries bilaterally at the time of catheterization and this is a chronic finding. ASSESSMENT AND PLAN: Ms. Novoa is a 72-year-old woman, who physiologically is probably 89-year-old. She is completely inactive at home. Has severe aortic stenosis and coronary artery disease. Her cardiac findings are compelling for surgical intervention, although her risk of having a prolonged ventilation, difficult if not nearly impossible recovery to any sort of meaningful level. I have discussed with her that if she undergoes open surgery, she has to be willing to understand that she may need residential placement afterwards. She also could potentially end up on the ventilator and need tracheostomy and prolonged ventilation in the long-term acute care center. I am not quite sure how well she and her understood our discussion. They want to go home. My feeling is she wants to go home, so she can smoke. They assure me that they are going to try to do better taking care of her diabetes at home. I am not quite sure that they have the wherewithal to do this. I will see her back in a couple of weeks in the office and re-approach her about this. Due to her occluded iliac artery, she is not a traditional TAVR candidate and I am not quite sure she would do well with a transapical approach for TAVR either. Job ID: [id number]
[2018-03-02 15:52] VITALS: BP 97/46; TEMP 98
--- NOTE | 2018-03-02 16:19 | PDOC.EVN ---
Event Note - Event Note Event Note: Mr. Novoa has an allergy to latex and should use latex free gloves. With any questions please call [facility] [phone] Jose Angel Arenas MD
--- NOTE | 2018-03-02 16:45 | CT ---
CT ARTERIOGRAM CHEST WITH IV CONTRAST AND 3D MIP IMAGING 03/02/18 HISTORY: Aortic valvular abnormality. Aortic valve repair. FINDINGS: There is good contrast opacification of the pulmonary arteries and aortic arch with normal branching of the great vessels. The aortic arch just above the level of the valve is 3.2 cm AP diameter. Nonsp ecific lymph nodes throughout the mediastinum. Calcification within the arterial structures. Small amount of left pleural fluid. Infiltrate and atel ectasis within the inferior lingular segment left upper lobe. No evidence of pneumothorax. Within the superolateral aspect of the left breast, an irregular shaped soft tissue density mass wit h suggestion of spiculation on t his exam measures up to 3.7 cm length x 3.1 cm depth x 1.9 cm width and contains some internal calcification. No axillary adenopathy is apparent. IMPRESSION: 1. No significant abnormality to the thoracic aorta are demonstrated. 2. Small left pleural effusion with atelectasis versus resolving infiltrate lingular segment lef t upper lobe. 3. Left breast mass. Prior breast history is not currently available for correlation. Please con small engine trainer diagnostic imaging workup of the breasts, including diagnostic mammography and sonogram. Findings are called to Dr. Brown at 1511 hours. Code CR POS: BST
--- NOTE | 2018-03-02 17:42 | EKG ---
Test Reason : Blood Pressure : / mmHG Vent. Rate : 109 BPM Atrial Rate : 109 BPM P-R Int : 130 ms QRS Dur : 076 ms QT Int : 386 ms P-R-T Axes : 035 004 059 degrees QTc Int : 519 ms Sinus tachycardia with Premature atrial complexes Septal infarct , age undetermined T wave abnormality, consider anterolateral ischemia Abnormal ECG Confirmed by DOMINIK SOTELO ([id number]), newspaper or periodical editor MELONIE BANEGAS ([id number]) on 03/02/2018 5:42:38 PM Referred By: Confirmed By:DOMINIK SOTELO
[2018-03-02] MEDS ORDERED: Insulin Glargine 28 UNITS in Pre-Filled Syringe 1 EACH SC SCH (21:00)
[2018-03-02] MEDS ORDERED: Amiodarone 200 MG TAB PO SCH (21:00)
--- NOTE | 2018-03-03 13:54 | DIS ---
DATE OF ADMISSION: 02/22/2018 DATE OF DISCHARGE: 03/02/2018 RESIDENT: Kristen Lambert MD, PGY-1 ADMITTING ATTENDING: Srinath Pope MD DISCHARGE ATTENDING: Wale Caro MD CONSULTS: 1. Cardiology, Dr. Albright. 2. Pulmonology, Dr. Wai Bansal. 3. EPS, Dr. Ken. 4. CV Surgery. PROCEDURES: None. PRIMARY DIAGNOSES: 1. Diabetic ketoacidosis, resolved. 2. Insulin-dependent diabetes mellitus, type 2. 3. Severe aortic stenosis. 4. Hypertension. 5. Tobacco abuse. 6. Hyperlipidemia. 7. Atrial fibrillation with rapid ventricular response. 8. Peripheral arterial disease, bilateral iliac occlusion. 9. Coronary artery disease. DISCHARGE MEDICATIONS: 1. Aspirin 81 mg p.o. daily. 2. Atorvastatin 40 mg p.o. at bedtime. 3. Lantus 28 units at bedtime. 4. Nitroglycerin 0.4 mg sublingual q.5 minutes p.r.n. 5. Amiodarone 200 mg p.o. b.i.d. 6. Digoxin 0.125 mg p.o. daily. 7. Lasix 40 mg p.o. daily. 8. Metoprolol tartrate 25 mg p.o. b.i.d. 9. Eliquis 2.5 mg p.o. b.i.d. 10. Glucometer. 11. Glucometer strips. 12. Insulin syringe. 13. Insulin needle tips. 14. Humalog 9 units subcu a.c. HISTORY OF PRESENT ILLNESS/HOSPITAL COURSE: Transition of Care Note 02/27/18 This is a 72 yo female with a pmh of DM2 who presents to the ed with a cc of lethargy and malaise. She states that she has been feeling bad for approximately 2-3 weeks at this point. She reports checking her sugar this morning and it being in the 500s. Her states that he gave her 70 units of an unknown insulin which did not correct her sugar and they then decided to come in. Pt reports not seeing the doctor or not taking medications for over 2 years. Her states she just did not want to do it. Patient was initiated on DKA protocol with rapid improvement in her condition. Patient had resolution of DKA and then was transitioned to subQ insulin. However , there was miscommunication with the nursing staff and they were under the impression not to give her any SSI and to keep her glucose around 200. That was counseled appropriately and SubQ insulin was resumed along with initiated metformin. This patient is a very poorly controlled diabetic with a HgbA1C found to be 18.5 at this hospitalization. Her basal insulin as well as meal time insulin has been steadily titrated up slowly to on 02/27 20 u Lantus at HS and 9 u Humalog at each meal with a correctional dose above that. She will likely need to continue to have her regimen titrated up daily and as an outpatient. On 02/24 at approximately 0930 patient had routine vitals checked and was found to be HR in 180s. An EKG was performed and showed she was in A-fib with RVR. Patient was started on Cardizem bolus with a drip titrated up to 15 ml/hr. Patient was then transitioned to Amiodarone and a cardiology consultation was placed. Dr. Albright then added in digoxin doses. However, she remained with a HR 130 and above. Then on 02/25 at 1800, patient converted to NSR and has maintained. Patient has been continued on daily oral Dixogin, Amiodarone, and Eliquis with maintenance of NSR. Patient was also found to have severe on ECHO performed while in the hospital. Patient and her have not decided on a treatment plan for that yet. In regards to her Afib with RVR patient remained in normal sinus rhythm with current regimen dose of amiodarone, digoxin, and metoprolol. For her aortic stenosis, the patient underwent a diagnostic cardiac catheterization on 03/01, which showed severe aortic stenosis. CV Surgery was consulted and it was recommended to further pursue outpatient management of valve replacement with CTA before dishcarge. Results showed an incidental left breast mass. It was recommended to follow up with PCP for further workup this. Patient indicated understanding. Of note, the patient also recently lost her daughter and was experiencing grief, however, declined wanting to be started on any type of antidepressants at this time. She wanted to follow up as outpatient for continued support with this. DISPOSITION: Stable. DISCHARGE INSTRUCTIONS: 1. Location: Home. 2. Diet: Heart-healthy diet, low-sodium, and diabetic diet as well. 3. Activity: Cardiopulmonary restrictions due to severe aortic stenosis. 4. Followup: Please follow up with PCP, Dr. Neff especially in regards to workup of left breast mass.. Please also follow up with Dr. Brown in 2 to 3 weeks. Please also follow up with Dr. Rupert Albright in 2 weeks. Job ID: [id number] MTDD
== END 2018-03-02 18:20 | disposition home or self-care (01) | DRG 637 ==
LOC: ERS 23:38 → ERHOLD 02-22 01:09 → IMCU/EMU 02-22 11:41 → T4-A 02-23 10:41 → IMCU/EMU 02-24 08:49 → 2NO 03-02 07:43
PROVIDERS: ADMIT Student in an Organized Health Care Education/Training Program; ATTEND Student in an Organized Health Care Education/Training Program
PROC: 4A023N8 Measurement of Cardiac Sampling and Pressure, Bilateral, Percutaneous Approach (ICD-10-PCS; principal; 2018-03-01)
PROC: B2111ZZ Fluoroscopy of Multiple Coronary Arteries using Low Osmolar Contrast (ICD-10-PCS; 2018-03-01)
PROC: B2151ZZ Fluoroscopy of Left Heart using Low Osmolar Contrast (ICD-10-PCS; 2018-03-01)
PROC: B41G1ZZ Fluoroscopy of Left Lower Extremity Arteries using Low Osmolar Contrast (ICD-10-PCS; 2018-03-01)
PROC: B41F1ZZ Fluoroscopy of Right Lower Extremity Arteries using Low Osmolar Contrast (ICD-10-PCS; 2018-03-01)
DX: E11.10 Type 2 diabetes mellitus with ketoacidosis without coma (principal); J96.90 Respiratory failure, unspecified, unspecified whether with hypoxia or hypercapnia; N17.9 Acute kidney failure, unspecified; I24.8 Other forms of acute ischemic heart disease; E11.65 Type 2 diabetes mellitus with hyperglycemia; F17.210 Nicotine dependence, cigarettes, uncomplicated; E87.6 Hypokalemia; R01.1 Cardiac murmur, unspecified; I35.0 Nonrheumatic aortic (valve) stenosis; E83.42 Hypomagnesemia; F43.21 Adjustment disorder with depressed mood; Z63.4 Disappearance and death of family member; I25.10 Atherosclerotic heart disease of native coronary artery without angina pectoris; I48.0 Paroxysmal atrial fibrillation; E11.51 Type 2 diabetes mellitus with diabetic peripheral angiopathy without gangrene; E78.5 Hyperlipidemia, unspecified; I10 Essential (primary) hypertension; Z88.5 Allergy status to narcotic agent; Z79.4 Long term (current) use of insulin; Z90.49 Acquired absence of other specified parts of digestive tract
CPT/HCPCS: 36415; 36416; 51701; 70450; 71275; 76942; 80048; 80053; 80061; 81003; 81015; 82010; 82550; 82553; 82805; 83036; 83605; 83735; 84100; 84443; 84484; 85025; 85347; 93005; 93010; 93306; 93460; 93561; 93567; 93798; 96361; 96365; 96366; 96368; 96372; 96375; 96376; 99152; 99153; A4353; C1769; G8978-GP-CJ; G8979-GP-CJ; G8980-GP-CJ; J0282; J1160; J1644; J1650; J1815; J1940; J2001; J2250; J2405; J3010; J3475; J3480; J7050; J7070; Q0162

== ENCOUNTER 2019-05-08 19:53 | Emergency (ER) | payer MEDICARE ==
[2019-05-08 20:49] LABS: #Eosinphils 0.2 thou/uL (0.0-0.7); #Lymphocytes 1.9 thou/uL (1.20-3.40); #Monocytes 0.9 thou/uL (0.11-0.59); #Neutrophils 6.1 thou/uL (1.40-6.50); %Basophils 0.4 % (0.0-1.0); %Eosinophils 2.3 % (0.0-10.0); %Lymphocytes 20.8 % (21.0-51.0); %Monocytes 9.4 % (0.0-10.0); %Neutrophils 67.1 % (42.0-75.0); Hemoglobin 13.5 g/dL (12.0-16.0); Mean Corpuscular HGB CONC 32.4 g/dL (32.0-36.0); Mean Corpuscular Hemoglobin 28.2 pg (27.0-31.0); Mean Corpuscular Volume 87.1 fL (78.0-98.0); Platelet Count 256 thou/uL (130-400); RBC Distribution Width 11.9 % (11.5-14.5); Red Blood Cell (RBC) Count 4.77 mill/uL (4.20-5.40); White Blood Cell (WBC) Count 9.1 thou/uL (4.8-10.8)
[2019-05-08 21:21] LABS: ALT (SGPT) 47 U/L (8-55); AST (SGOT) 33 U/L (5-34); Albumin 3.5 g/dL (3.4-4.8); Alkaline Phosphatase 171 U/L (40-110); BUN (Urea Nitrogen) 14 mg/dL (9.8-20.1); Bilirubin, Total 0.8 mg/dL (0.2-1.2); Calc. Creatinine Clearance 0 mL/min (70-130); Calcium 9.6 mg/dL (7.8-10.44); Carbon Dioxide 23 mmol/L (23-31); Estimated GFR-MDRD 60; Globulin 2.7 g/dL (2.4-3.5); Glucose 128 mg/dL (83-110); Protein, Total 6.2 g/dL (6.0-8.3)
[2019-05-08 21:31] LABS: Anion Gap 20 mmol/L (10-20); Chloride 97 mmol/L (98-107); Potassium 4.2 mmol/L (3.5-5.1); Sodium 134 mmol/L (136-145)
[2019-05-08 21:36] LABS: CKMB 3.5 ng/mL (0-6.6)
--- NOTE | 2019-05-08 21:37 | RAD ---
EXAM: CHEST ONE VIEW: 05/08/19 HISTORY: Dyspnea. FINDINGS: There is some pleural and parenchymal opacity change in the left costophrenic angle region concerning for pleural effusion and possibly associated pneumonia or atelectasis. Heart size is within normal l imits. The right lung appears clear. IMPRESSION: Pleural and parenchymal opacity changes in the left base. Correlate clinically. This is a new finding when compared to a CT from 03/02/18. POS: RRE
== END 2019-05-08 22:11 | disposition home or self-care (01) ==
LOC: ERS 19:53
DX: J81.1 Chronic pulmonary edema (principal); E10.9 Type 1 diabetes mellitus without complications; F32.9 Major depressive disorder, single episode, unspecified; F17.210 Nicotine dependence, cigarettes, uncomplicated
CPT/HCPCS: 36415; 71045; 80053; 82553; 84484; 85025; 93005

== ENCOUNTER 2019-05-13 19:29 | Inpatient (IN) | payer MEDICARE ==
--- NOTE | 2019-05-13 20:28 | RAD ---
CHEST ONE VIEW: 05/13/19 HISTORY: Shortness of breath. COMPARISON: 05/08/19 exam. Heart size within normal limits. There are atherosclerotic changes of the aorta. There is slight incr ease in size of the left sided pleural effusion. Associated parenchymal changes are seen. The right l juli is clear. IMPRESSION: Increasing left sided pleural effusion. POS: [facility]
[2019-05-13 20:45] LABS: ALT (SGPT) 33 U/L (8-55); AST (SGOT) 36 U/L (5-34); Albumin 3.1 g/dL (3.4-4.8); Alkaline Phosphatase 176 U/L (40-110); Anion Gap 20 mmol/L (10-20); BUN (Urea Nitrogen) 11 mg/dL (9.8-20.1); Bilirubin, Total 0.5 mg/dL (0.2-1.2); Calc. Creatinine Clearance 0 mL/min (70-130); Calcium 8.7 mg/dL (7.8-10.44); Carbon Dioxide 27 mmol/L (23-31); Chloride 89 mmol/L (98-107); Estimated GFR-MDRD 46; Globulin 2.9 g/dL (2.4-3.5); Potassium 4.5 mmol/L (3.5-5.1); Sodium 131 mmol/L (136-145)
[2019-05-13 20:48] LABS: Glucose 561 mg/dL (83-110)
[2019-05-13 21:08] LABS: CKMB 2.8 ng/mL (0-6.6)
[2019-05-13] MEDS ORDERED: Albuterol Sulfate 2.5 mg/0.5 ml Neb ONE (21:09)
[2019-05-13 21:39] LABS: #Lymphocytes 0.6 thou/uL (1.20-3.40); #Monocytes 0.2 thou/uL (0.11-0.59); #Neutrophils 6.6 thou/uL (1.40-6.50); %Basophils 0.2 % (0.0-1.0); %Eosinophils 0.3 % (0.0-10.0); %Lymphocytes 8.4 % (21.0-51.0); %Neutrophils 88.1 % (42.0-75.0); Hemoglobin 12.8 g/dL (12.0-16.0); Mean Corpuscular HGB CONC 32.2 g/dL (32.0-36.0); Mean Corpuscular Hemoglobin 28.4 pg (27.0-31.0); Mean Corpuscular Volume 88.3 fL (78.0-98.0); Mean Platelet Volume 8.7 fL (7.4-10.4); Platelet Count 207 thou/uL (130-400); RBC Distribution Width 11.9 % (11.5-14.5); White Blood Cell (WBC) Count 7.5 thou/uL (4.8-10.8)
[2019-05-13] MEDS ORDERED: Senokot S 8.6-50 MG TAB PO PRN (22:39)
[2019-05-13] MEDS ORDERED: Dextrose 50% Abboject 50 ML SYRINGE SLOW IVP PRN (22:41)
[2019-05-13] MEDS ORDERED: Dextrose 5% in Water 1,000 ML IV PRN (22:41)
[2019-05-13] MEDS ORDERED: HumaLOG 300 UNITS/3 ML VIAL SC PRN (22:41)
[2019-05-13] MEDS ORDERED: Aspirin Chewable 81 MG TAB ONE (22:48)
[2019-05-13] MEDS ORDERED: Bacteriostatic Water 30 ML VIAL FS PRN (22:52)
[2019-05-13] MEDS ORDERED: Insulin Regular 300 UNITS/3 ML VIAL ONE (23:37)
[2019-05-13 23:57] LABS: Troponin I 0.085 ng/mL (< 0.028)
[2019-05-14 01:56] LABS: Glucose 755 mg/dL (83-110)
[2019-05-14 02:09] LABS: Troponin I 0.085 ng/mL (< 0.028)
[2019-05-14] MEDS ORDERED: Insulin Regular 300 UNITS/3 ML VIAL IVP SCH ×2 (02:15→06:15)
[2019-05-14] MEDS ORDERED: Insulin Glargine 28 UNITS in Pre-Filled Syringe 1 EACH SC SCH ×2 (02:30→21:00)
[2019-05-14 03:28] VITALS: BMI 25.9
--- NOTE | 2019-05-14 04:39 | HP ---
CHIEF COMPLAINT: Shortness of breath. HISTORY OF PRESENT ILLNESS: The patient is a 73-year-old female with a history of aortic stenosis, hypertension, atrial fibrillation, who presents to the hospital with worsening shortness of breath for the past few days. The patient's family, who is at the bedside, stated that she has been having significant lower extremity swelling, which has been going on for about a month or even more than a month. She did go to her PCPs office around the first week of May and her PCP was supposed to prescribe her some diuretics; however, her lower extremity swelling got so worse that she came into the ER on 05/08. She was given diuretics. The patient's family also states that she has been falling a lot at home. The patient stated that today, all of a sudden, she started having significant shortness of breath and she also had some chest tightness. When asked the patient, she states that she does not really recall much and the family member stated that her actually called 911 and EMS brought her to the hospital. Per the ER and EMS report, she was 86% on room air. At this time, she was put on a CPAP, was given DuoNeb, Solu-Medrol, and nitroglycerin and was brought into the hospital. She denies any orthopnea or PND. She states she has been having significant lower extremity swelling and has been having a cough. She has been falling significantly due to her ankle swelling and also has been having significant shortness of breath on exertion for the past few days. PAST MEDICAL HISTORY: 1. She has a history of diabetes. 2. Aortic stenosis. She has had severe aortic stenosis last year; however, she never followed up with anybody. She stated that she does not want any surgery. 3. Hypertension. 4. Atrial fibrillation. 5. Coronary artery disease. 6. Peripheral vascular disease. PAST SURGICAL HISTORY: She has had a hysterectomy and cholecystectomy. FAMILY HISTORY: No history of heart disease or stroke. SOCIAL HISTORY: She continues to smoke. She was a former smoker and continues to smoke at least 2 or 3 cigarettes a day. Denies any alcohol use, drug use. I did talk to her about code status. She wants to be a full code. REVIEW OF SYSTEMS: All negative except for the ones mentioned above in the HPI. ALLERGIES: SHE IS ALLERGIC TO CODEINE AND MORPHINE. MEDICATIONS: According to the family, she only takes an inhaler and insulin, that is about it. PHYSICAL EXAMINATION: VITAL SIGNS: Temperature of 98.4, respiratory rate 15, blood pressure 131/74, heart rate 85, saturation 99% on 4 L. GENERAL: She is awake, alert, and oriented x3. Does not appear in distress. HEENT: Normocephalic, atraumatic. No lymphadenopathy noted. Pupils equal and reactive to light. CARDIOVASCULAR: S1 and S2 present. She has a systolic murmur to her left sternal border. LUNGS: She has significant rhonchi and wheezing all over her lungs. Decreased breath sounds in the left lower lung area. EXTREMITIES: Significant swelling to bilateral lower extremities. Her second toe has a small blister and her first toe has a small scab and does not appear to be infected, but does have some erythema around it. ABDOMEN: Soft and nontender. Bowel sounds are present x2. NEUROVASCULAR: No focal deficits noted. SKIN: As I mentioned, she has a blister on her second left toe and first toe, she has a small scab. LABORATORY DATA: WBC of 7.5, hemoglobin of 12.8, hematocrit of 39.7, platelets of 207. Her chemistry; sodium of 131, potassium of 4.5, BUN of 11, creatinine of 1.16. Her glucose is 561, AST is 36, ALT is 33, alkaline phosphatase is 176. Her troponin is 0.076. Her BNP was 1524. She did have a chest x-ray done, which indicated she has some left pleural effusion. Her EKG upon my interpretation does not have any T-wave changes. I did compare her to her prior EKG and it was significantly unchanged from her prior. ASSESSMENT AND PLAN: The patient is a very pleasant 73-year-old female, who presents to the hospital with shortness of breath. 1. Shortness of breath. This could be a combination of a chronic obstructive pulmonary disease exacerbation with also heart failure from her aortic valve. She has significant lower extremity edema. Her last echocardiogram was back in 2018 and had EF of 55% to 60% and she had severe aortic stenosis at that time. She stated that she does not want any surgery and have not fallen up since then. We will start her on some IV diuretics and also she has a smoking history and she continues to smoke. I will also put her on some Solu-Medrol and DuoNebs. We will check a procalcitonin level. She did not have any fever or chills, unlikely to be infectious in etiology. 2. Acute kidney injury. Again, she has been on diuretics. She does not appear to be dehydrated. We will continue to monitor. 3. Diabetes, uncontrolled. Her sugar was 561. She is not in DKA. We will continue to monitor and we will give her Lantus and sliding scale insulin. We will check a hemoglobin A1c in the morning. 4. Elevated troponins. This could be probably strain, type 2 possible. She has no EKG changes. She did have any chest pain, however, she did receive nitroglycerin and she received aspirin. She was supposed to be on Eliquis as per her previous medications and on digoxin. She is not on those currently. According to the family member, she is only taking ProAir and some insulin and some allergy medications. She also has a history of atrial fibrillation, however, currently she appears to be in normal sinus. 5. DVT prophylaxis. We will put the patient on SCDs and subcu Lovenox. Job ID: [id number]
[2019-05-14 05:06] LABS: #Lymphocytes 0.6 thou/uL (1.20-3.40); #Monocytes 0.1 thou/uL (0.11-0.59); #Neutrophils 4.8 thou/uL (1.40-6.50); %Basophils 0.4 % (0.0-1.0); %Eosinophils 0.1 % (0.0-10.0); %Lymphocytes 10.1 % (21.0-51.0); %Monocytes 2.6 % (0.0-10.0); %Neutrophils 86.9 % (42.0-75.0); Hemoglobin 12.7 g/dL (12.0-16.0); Mean Corpuscular HGB CONC 31.7 g/dL (32.0-36.0); Mean Corpuscular Hemoglobin 28.2 pg (27.0-31.0); Mean Corpuscular Volume 88.8 fL (78.0-98.0); Mean Platelet Volume 8.6 fL (7.4-10.4); Platelet Count 202 thou/uL (130-400); White Blood Cell (WBC) Count 5.5 thou/uL (4.8-10.8)
[2019-05-14 05:08] LABS: Hemoglobin A1c Greater than 14.0 % (4.0-6.0)
[2019-05-14 05:23] LABS: Anion Gap 18 mmol/L (10-20); BUN (Urea Nitrogen) 16 mg/dL (9.8-20.1); Calc. Creatinine Clearance 53 mL/min (70-130); Calcium 8.2 mg/dL (7.8-10.44); Carbon Dioxide 26 mmol/L (23-31); Chloride 89 mmol/L (98-107); Estimated GFR-MDRD 49; Potassium 3.7 mmol/L (3.5-5.1); Sodium 129 mmol/L (136-145)
[2019-05-14 05:30] LABS: Glucose 709 mg/dL (83-110)
[2019-05-14] MEDS ORDERED: Insulin Regular 300 UNITS/3 ML VIAL SC PRN (07:58)
[2019-05-14] MEDS ORDERED: Nitroglycerin 0.4 MG TAB (25 Tab Bottle) SL PRN (07:58)
[2019-05-14] MEDS ORDERED: Insulin Regular 300 UNITS/3 ML VIAL IVP PRN (08:00)
[2019-05-14 08:45] LABS: Troponin I 0.066 ng/mL (< 0.028)
[2019-05-14] MEDS: Aspirin 325 MG TAB PO SCH (08:51)
[2019-05-14] MEDS: predniSONE 20 MG TAB PO SCH (08:52)
[2019-05-14] MEDS: HumaLOG 300 UNITS/3 ML VIAL SC SCH ×3 (08:52→23:46)
[2019-05-14] MEDS: Insulin Glargine 30 UNITS in Pre-Filled Syringe 1 EACH SC SCH (08:53)
[2019-05-14] MEDS: Furosemide 40 MG/4 ML VIAL SLOW IVP SCH (08:59)
[2019-05-14] MEDS ORDERED: Enoxaparin Sodium 40 MG/0.4 ML SYRINGE SC SCH (09:00)
[2019-05-14] MEDS ORDERED: methylPREDNISolone Sod Succ 40 MG VIAL IVP SCH (09:00)
[2019-05-14] MEDS ORDERED: Nitroglycerin 2% Ointment 1 INCH/1 GM Packet TOP SCH ×2 (10:30→10:45)
--- NOTE | 2019-05-14 11:22 | PDOC.HOSPP ---
- Subjective Encounter Date: 05/14/19 Encounter Time: 09:10 Subjective: pt states that she does not remember having CP; talk to the RN few times due to her CP. EKG changes - will repeat EKG and trop today, it appears more of type II , ST/T changes than maxime MA, based on clinical hx. underlying hx of Aortic stenosis. - Objective Vital Signs & Weight: Vital Signs (12 hours) Temp Pulse Resp BP BP Pulse Ox 05/14/19 08:06 84 18 94 L 05/14/19 08:00 97.6 F 77 16 95/91 H 93 L 05/14/19 04:00 97.6 F 89 20 110/65 91 L 05/14/19 03:05 95 05/14/19 03:02 18 96 05/14/19 00:17 97.7 F 67 22 H 95 Weight Weight 161 lb 2 oz Result Diagrams: 05/14/19 04:47 05/14/19 04:47 Additional Labs: Accuchecks 05/14/19 05/14/19 05/13/19 10:51 08:45 23:46 POC Glucose 415 H 518 H Greater than 550 H* Hospitalist ROS - Medication Medications: Active Medications Generic Name Dose Route Start Last Admin Trade Name Freq PRN Reason Stop Dose Admin Albuterol/Ipratropium 3 ml 05/14/19 01:00 05/14/19 08:06 Duoneb NEB 3 ml [id number] SANJANA Administration Aspirin 325 mg 05/14/19 09:00 05/14/19 08:51 Aspirin PO 325 mg DAILY SANJANA Administration Enoxaparin Sodium 40 mg 05/14/19 09:00 05/14/19 08:51 Lovenox SC 40 mg 0900 SANJANA Administration Furosemide 40 mg 05/14/19 09:00 05/14/19 08:59 Lasix SLOW IVP Not Given DAILY SANJANA Insulin Glargine 30 units/ 0.3 mls @ 0 mls/hr 05/14/19 09:00 05/14/19 08:53 Miscellaneous Medication SC 0.3 mls QAM SANJANA Administration Insulin Human Lispro 10 units 05/14/19 09:00 05/14/19 08:52 Humalog SC 10 unit TID SANJANA Administration Nitroglycerin 0.4 mg 05/14/19 07:58 05/14/19 08:54 Nitrostat SL 0.4 mg Q5MIN PRN Administration Chest Pain Nitroglycerin 0.25 inch 05/14/19 10:45 05/14/19 11:09 Nitro-Bid 2% Ointment TOP 05/14/19 16:00 Not Given NOW SANJANA Prednisone 20 mg 05/14/19 08:00 05/14/19 08:52 Prednisone PO 05/17/19 08:01 20 mg QAM-WM SANJANA Administration Sodium Chloride 10 ml 05/14/19 09:00 05/14/19 08:54 Flush - Normal Saline IVF 10 ml Q12HR SANJANA Administration - Exam General Appearance: NAD, awake alert Eye: PERRL ENT: normocephalic atraumatic Neck: supple Heart: RRR, normal peripheral pulses Respiratory: CTAB, normal chest expansion Gastrointestinal: soft, normal bowel sounds Hosp A/P - Plan COPD exacerbation -BD, abx guaifenesin Abnromal troponin -type II metabolic mismatch - demand ischemia - cardiol consult -echo ordered -repeat trop and EKG -supposed to be on dig and eliquis - but not nowadays per family? -starting low dose coreg. --need to restart eliquis, pt appears have dementia - - d/w family reg.. AC. Ao stenosis -based on 2018 echo -refused intervention -repeating the echo. Acute on CKD 3 -dehydration -cannot give aggressive IVF d/t above -on lasix -with holds
[2019-05-14 12:54] LABS: CKMB 4.2 ng/mL (0-6.6)
[2019-05-14] MEDS ORDERED: Enoxaparin Sodium 30 MG/0.3 ML SYRINGE SC SCH (15:00)
[2019-05-14] MEDS: Carvedilol 3.125 MG TAB PO SCH (15:58)
[2019-05-14] MEDS ORDERED: Furosemide 20 MG/2 ML VIAL SLOW IVP SCH (16:45)
[2019-05-14] MEDS ORDERED: Insulin Glargine 25 UNITS in Pre-Filled Syringe 1 EACH SC SCH (21:00)
--- NOTE | 2019-05-14 21:38 | CON ---
DATE OF CONSULTATION: HISTORY OF PRESENT ILLNESS: Cecelia Novoa is a 73-year-old white female admitted for increased shortness of breath. I initially evaluated her in February 2018. She had been having increasing dyspnea for 1 to 1-1/2 years. She has been feeling bad for several weeks. Her took her blood sugar and it was 500. She came to the emergency room, was found to be in diabetic ketoacidosis and was treated for that. She developed a rapid heart rate and was found to be in atrial fibrillation with fast ventricular response, transferred to telemetry. She was unaware of her heart beating rapidly, but only complained of shortness of breath. She was anticoagulated with Lovenox given digoxin 0.5 mg IV. She was eventually placed on amiodarone and developed atrial flutter and then converted to sinus rhythm. On echo, she was found to have severe aortic stenosis. She underwent cardiac catheterization, was found to have an aortic valve area of 0.45 cm2. The mean aortic valve gradient was 52 mm. Her ejection fraction was 45%. She also had a totally occluded bilateral iliac arteries and access was obtained through the right brachial artery. She also had 2 vessel coronary artery disease with 70% mid circumflex and an 80% mid right coronary artery and a 70% right posterior descending. She was seen in consultation by Dr. Stephen Brown, who ultimately felt that she was not a good candidate for aortic valve replacement. She never did come back to my office for follow up despite being instructed to do so. She now is admitted with increased leg edema and shortness of breath. At times , she also had chest pressure. She has apparently been having a lot of falls at home and in discussing this with her, she states that she just finds herself on the floor. When EMS was called today due to her dyspnea, she had a room air sat of 86%, was placed on BiPAP, given DuoNeb, Solu-Medrol. At the present time, she continues to complain of shortness of breath. PAST MEDICAL HISTORY: Diabetes, severe aortic stenosis, hypertension, hypercholesterolemia, history of atrial fibrillation, bilateral common iliac artery occlusion, and peripheral vascular disease. MEDICATIONS: 1. Albuterol nebs. 2. Aspirin 81 daily. 3. Furosemide 40 mg q.a.m. 4. Insulin. ALLERGIES: CODEINE AND MORPHINE. SOCIAL HISTORY: She smoked 2 packs per day until February 2018. She has cut back and currently smokes 3 or 4 cigarettes per day. She does not drink. REVIEW OF SYSTEMS: Otherwise unremarkable. PHYSICAL EXAMINATION: VITAL SIGNS: Blood pressure 107/60 and pulse of 100. HEENT: PERRL. NECK: Supple. CHEST: Reveals expiratory wheezing bilaterally. CARDIOVASCULAR: S1 and S2 are normal. There is a 2/6 systolic ejection murmur at the apex. ABDOMEN: Normal bowel sounds without tenderness or organomegaly. EXTREMITIES: Revealed 2+ pretibial edema. NEUROLOGIC: Grossly intact. LABORATORY DATA: EKG revealed normal sinus rhythm with poor R-wave progression. Nonspecific ST-segment changes. Chest x-ray revealed left pleural effusion. CBC is unremarkable. Troponin I 0.109. Hemoglobin A1c greater than 14.0, glucose 518 and 755. Sodium 129, potassium 3.7, chloride 89, carbon dioxide 26, BUN 16, and creatinine 1.10. IMPRESSION: 1. Congestive heart failure secondary to severe aortic stenosis. She also has episodes of angina and from her description, probably has syncopal episodes related to her aortic stenosis. Aortic valve area at catheterization in February 2018 was 0.45 cm2. 2. Two-vessel coronary artery disease. 3. Bilateral common iliac artery occlusion. 4. History of atrial fibrillation in February 2018, which converted to sinus rhythm with amiodarone. She was discharged on amiodarone and Eliquis, but is no longer taking this. 5. Diabetes mellitus under very poor control. She had diabetic ketoacidosis when she was admitted in February 2018. 6. History of acute kidney injury. 7. The patient continues to smoke. 8. Hypercholesterolemia with LDL 116 in the past. She was discharged on atorvastatin 40 daily, but is no longer on this medication either. RECOMMENDATIONS: This patient has end-stage aortic stenosis. Attempts will be made to diurese to improve her shortness of breath. Due to bilateral common iliac occlusion, she is not a candidate for femoral artery insertion of TAVR. At times, this can be placed transthoracic and this could be an option, but she also has fairly significant coronary artery disease. She will be diuresed and her blood sugar needs to be better controlled. Consideration certainly needs to be given to this patient being made DNR and consideration of hospice. Job ID: [id number] [facility]
[2019-05-14] MEDS: Enoxaparin Sodium 80 MG/0.8 ML SYRINGE SC SCH (21:42)
[2019-05-14] MEDS: Atorvastatin Calcium 40 MG TAB PO SCH ×2 (21:42→21:45)
[2019-05-15] MEDS: Insulin Glargine 30 UNITS in Pre-Filled Syringe 1 EACH SC SCH (08:32)
[2019-05-15] MEDS: predniSONE 20 MG TAB PO SCH (08:35)
[2019-05-15] MEDS: Aspirin 325 MG TAB PO SCH (08:35)
[2019-05-15] MEDS: Enoxaparin Sodium 80 MG/0.8 ML SYRINGE SC SCH ×2 (08:38→21:34)
[2019-05-15] MEDS: Carvedilol 3.125 MG TAB PO SCH ×2 (08:39→18:36)
[2019-05-15] MEDS: Furosemide 40 MG/4 ML VIAL SLOW IVP SCH (08:39)
[2019-05-15] MEDS: Acetaminophen 325 MG TAB PO PRN ×2 (09:59→15:22)
[2019-05-15] MEDS ORDERED: Sodium Chloride 0.9% 200 ML IV PRN (10:10)
[2019-05-15] MEDS ORDERED: Lorazepam 0.5 MG TAB PO PRN ×2 (13:22→15:12)
--- NOTE | 2019-05-15 13:26 | PDOC.PALCO ---
Palliative Care Consult - Consult Details Requesting Physician: Dr Jensen Reason for Consult: goals of care, advance directives assistance, complex decision-making Family Members Present: , daughter and [id number] - Allergies Allergies/Adverse Reactions: Allergies Allergy/AdvReac Type Severity Reaction Status Date / Time codeine Allergy Verified 05/14/19 04:32 morphine Allergy Verified 05/14/19 04:32 - Objective Vital Signs: Vital Signs - Most Recent Temp Pulse Resp BP Pulse Ox 98 F 90 20 99/60 97 05/15/19 11:42 05/15/19 11:42 05/15/19 11:42 05/15/19 11:45 05/15/19 11:42 - Plan/Recommendations Plan: Hospice [facility] to evaluate patient, hopeful to transition home with hospice. Allergy to morphine, intermittent episodes of anxiety that are related to air hunger, breathlessness. Will add Clonazepam 0.5mg po BID and Ativan 0.5 PRN Q [address] Jensen [] minutes spent on this encounter with >50% of the time in counseling and coordination of care. Thank you for this very appropriate consult.
--- NOTE | 2019-05-15 15:07 | PDOC.HOSPP ---
- Subjective Encounter Date: 05/15/19 Encounter Time: 09:00 Subjective: pt has rough time today, feeling painful. BP on the low end, lungs congestion, d /w dtr about overall poor prognosis. palliative consulted. - Objective Vital Signs & Weight: Vital Signs (12 hours) Temp Pulse Pulse Pulse Pulse Resp BP 05/15/19 13:30 80 20 05/15/19 11:45 05/15/19 11:42 98 F 90 20 05/15/19 11:06 05/15/19 10:40 101 H 28 H 05/15/19 08:40 87 85 83 97/63 05/15/19 08:05 05/15/19 07:28 97.6 F 84 20 05/15/19 04:15 74 05/15/19 03:52 96 F L 73 20 BP BP BP Pulse Ox 05/15/19 13:30 92 L 05/15/19 11:45 99/60 05/15/19 11:42 85/48 L 97 05/15/19 11:06 97 05/15/19 10:40 93 L 05/15/19 08:40 86/50 L 82/55 L 05/15/19 08:05 93 L 05/15/19 07:28 96/56 L 97 05/15/19 04:15 95/59 L 05/15/19 03:52 86/53 L 99 Weight Weight 161 lb 2 oz I&O: 05/14/19 05/15/19 05/16/19 06:59 06:59 06:59 Intake Total 610 Output Total 200 Balance 410 Result Diagrams: 05/14/19 04:47 05/14/19 04:47 Additional Labs: Accuchecks 05/15/19 05/15/19 05/15/19 10:18 05:33 03:10 POC Glucose 127 H 97 103 05/15/19 05/14/19 05/14/19 01:03 23:27 19:28 POC Glucose 67 L 43 L* 69 L 05/14/19 17:04 POC Glucose 142 H Hospitalist ROS - Medication Medications: Active Medications Generic Name Dose Route Start Last Admin Trade Name Freq PRN Reason Stop Dose Admin Acetaminophen 650 mg 05/13/19 22:39 05/15/19 09:59 Tylenol PO 650 mg Q4H PRN Administration Headache/Fever/Mild Pain (1-3) Albuterol/Ipratropium 3 ml 05/14/19 01:00 05/15/19 13:30 Duoneb NEB 3 ml [id number] SANJANA Administration Albuterol/Ipratropium 3 ml 05/14/19 16:42 05/15/19 10:40 Duoneb NEB 3 ml Q4H PRN Administration SOB &/or Wheezing Aspirin 325 mg 05/14/19 09:00 05/15/19 08:35 Aspirin PO 325 mg DAILY SANJANA Administration Atorvastatin Calcium 40 mg 05/14/19 21:00 05/14/19 21:45 Lipitor PO Not Given HS SANJANA Carvedilol 3.125 mg 05/14/19 17:00 05/15/19 08:39 Coreg PO Not Given BID-WM SANJANA Dextrose/Water 25 gm 05/13/19 22:41 05/15/19 01:18 Dextrose 50% SLOW IVP 25 gm PRN PRN Administration Hypoglycemia Enoxaparin Sodium 70 mg 05/14/19 21:00 05/15/19 08:38 Lovenox SC 70 mg 0900,2100 SANJANA Administration Furosemide 40 mg 05/14/19 09:00 05/15/19 08:39 Lasix SLOW IVP Not Given DAILY SANJANA Nitroglycerin 0.4 mg 05/14/19 07:58 05/14/19 08:54 Nitrostat SL 0.4 mg Q5MIN PRN Administration Chest Pain Prednisone 20 mg 05/14/19 08:00 05/15/19 08:35 Prednisone PO 05/17/19 08:01 20 mg QAM-WM SANJANA Administration Sodium Chloride 10 ml 05/14/19 09:00 05/15/19 08:37 Flush - Normal Saline IVF 10 ml Q12HR SANJANA Administration - Exam General Appearance: NAD, awake alert Eye: PERRL ENT: normocephalic atraumatic Neck: supple, symmetric Heart: RRR Respiratory: normal chest expansion, rales, rhonchi, wheezes Gastrointestinal: soft Gastrointestinal - other findings: ventral hernia Neurological: cranial nerve grossly intact, no focal deficits Hosp A/P - Plan COPD exacerbation -BD, abx guaifenesin Abnromal troponin -type II metabolic mismatch - demand ischemia - cardiol consult -echo ordered -repeat trop and EKG -supposed to be on dig and eliquis - but not nowadays per family? -starting low dose coreg. --need to restart eliquis, pt appears have dementia - - d/w family reg.. AC. Ao stenosis -based on 2017 echo -refused intervention -repeating the echo. Acute on CKD 3 -dehydration -cannot give aggressive IVF d/t above -on lasix -with holds echo 25%; sever AO sten and Ao Regur. palliative consult reviewed prob home w.. hospice. until then supportive care, pain control and try to keep her hemodynamically stable. BP med as needed and with holds and lasix PRN.
[2019-05-15] MEDS ORDERED: HYDROcodone/Acetaminophen 5/325 mg Tablet PO PRN (15:11)
[2019-05-15] MEDS ORDERED: Lorazepam 1 MG TAB PO PRN (15:21)
[2019-05-15] MEDS ORDERED: clonazePAM 0.5 MG TAB PO SCH (21:00)
[2019-05-15 21:19] VITALS: BP 110/60; TEMP 98.3
[2019-05-15] MEDS: Atorvastatin Calcium 40 MG TAB PO SCH (23:28)
--- NOTE | 2019-05-16 04:02 | DIS ---
DATE OF ADMISSION: 05/13/2019 DATE OF DISCHARGE: 05/15/2019 DISCHARGE DIAGNOSES: Severe aortic stenosis, odlvp-[id number]-[id number] kidney disease, chronic obstructive pulmonary disease exacerbation, abnormal troponin with type 2 metabolic mismatch, demand ischemia, and it is not NSTEMI given her severe aortic stenosis. This is related to aortic stenosis causing abnormal troponin and demand ischemia. DISCHARGE MEDICATIONS: Same as home medications and there is no change from her previous home medications. HOSPITAL COURSE: Please see the History and Physical and today's Progress Note. Admitted with COPD exacerbation and sjhtd-sh-ixskggz kidney disease secondary to dehydration. The patient has underlying severe aortic stenosis and the echo showed 25% EF with worsening aortic stenosis with regurgitations. The patient was given a surgical option last year and she declined it. She is clinically getting worse. Cardiology did evaluate her. Palliative consult was recommended. The patient will be going to hospice today. Overall prognosis is poor. DISCHARGE INSTRUCTION: Activity as tolerated. Follow up as needed with hospice physician. DISCHARGE TIME: Less than 30 minutes. Job ID: [id number]
--- NOTE | 2019-05-16 10:33 | PQF ---
PEREZVENECIA EDWINDOMINGODIOMEDESTASH [id number] [address] [place] [address] [id number] CLINICAL DOCUMENTATION IMPROVEMENT CLARIFICATION FORM: ICD-10 Updated PLEASE DO AN ADDENDUM TO THE PROGRESS NOTE WITH ANY DOCUMENTATION UPDATES OR ADDITIONS AND CARRY THROUGH TO DC SUMMARY. THANK YOU. DATE: 05-16-19 ATTN: DR. MARIE Please exercise your independent, professional judgment in responding to the clarification form. Clinical indicators are provided on the bottom of this form for your review Please check appropriate box(s): HEART FAILURE: A. ACUITY [ ] Acute [x ] Acute on Chronic [ ] Chronic B. TYPE [ x] Systolic / HFrEF [ ] Diastolic / HFpEF [ ] Combined Systolic / Diastolic [ ] Hypertensive Heart and Kidney disease [ ] Hypertensive Heart Disease [ ] Hypertensive Kidney Disease [ ] Other diagnosis [ ] Unable to determine For continuity of documentation, please document condition throughout progress notes and discharge summary. Thank You. CLINICAL INDICATORS - SIGNS / SYMPTOMS / LABS / RESULTS AND LOCATION IN EMR 05-12 ED: * DYSPNEA - NEW OXYGEN REQUIREMENT * RR 15-26 * O2 SAT 92-100 4LNC * NOT ON HOME O2 LABS: 05-12 BNP 1524.3 CXR 05-12 INCREASING LEFT SIDED PLEURAL EFFUSION. 05-12 (SKY) H&P: * EMS REPORTS 86% ON RA - PUT ON CPAP; DUONEB; SOLU-MEDROL; NITRO * SOB; COULD BE COMBINATION OF COPD EXACERBATION W/ ALSO HEART FAILURE FROM HER AORTIC VALVE * SIGNIFICANT LE EDEMA; * ELEVATED TROP - PROBABLY STRAIN, TYPE 2 POSSIBLE 05-13 CONSULT (NORBERTO): CHF D/T SEVERE AORTIC STENOSIS 05-13 ECHO: EF 25-30% 05-13 PN (CYNTHIA): ALEE ON CKD STAGE 3 RISKS FACTORS / RESULTS AND LOCATION IN EMR 3 H&P (VICTORINO): HX OF SEVERE AORTIC STENOSIS; HTN; A-FIB; CAD TREATMENTS / RESULTS AND LOCATION IN EMR 05-13 CARDIOLOGY CONSULT 05-13 ECHO THANK YOU, LUPE (This form is maintained as a part of the permanent medical record) 2014 [employer]. All Rights Reserved Luep Niño RN, BS [email or web address] Cell [facility]
--- NOTE | 2019-05-16 10:45 | PQF ---
CHRISVENECIA Laith EDWINTASH LAGUNA [id number] [address] [place] [address] [id number] CLINICAL DOCUMENTATION IMPROVEMENT CLARIFICATION FORM: ICD-10 Updated PLEASE DO AN ADDENDUM TO THE PROGRESS NOTE WITH ANY DOCUMENTATION UPDATES OR ADDITIONS AND CARRY THROUGH TO DC SUMMARY. THANK YOU. DATE: 05-16-19 ATTN: DR MARIE Please exercise your independent, professional judgment in responding to the clarification form. Clinical indicators are provided on the bottom of this form for your review Please check appropriate box(s): [ ] Acute Respiratory Failure: [ ] with Hypoxia[ ] with Hypercapnia [ x ] Hypoxia [ ] No Respiratory Failure [ ] Other diagnosis [ ] Unable to determine For continuity of documentation, please document condition throughout progress notes and discharge summary. Thank You. CLINICAL INDICATORS - SIGNS / SYMPTOMS / LABS / RESULTS AND LOCATION IN EMR 05-12 ED: * DYSPNEA - NEW OXYGEN REQUIREMENT * RR 15-26 * O2 SAT 92-100 4LNC * NOT ON HOME O2 CXR 05-12 INCREASING LEFT SIDED PLEURAL EFFUSION. 05-12 (VICTORINO) H&P: * EMS REPORTS 86% ON RA - PUT ON CPAP; DUONEB; SOLU-MEDROL; NITRO * SOB; COULD BE COMBINATION OF COPD EXACERBATION W/ ALSO HEART FAILURE FROM HER AORTIC VALVE * SIGNIFICANT LE EDEMA; 05-13 CONSULT (NORBERTO): * CHF D/T SEVERE AORTIC STENOSIS * EXPIRATORY WHEEZING BILATERALLY RISKS FACTORS / RESULTS AND LOCATION IN EMR 05-12 [facility] * HX OF SEVERE AORTIC STENOSIS; HTN; A-FIB; CAD * COPD EXACERBATION TREATMENTS / RESULTS AND LOCATION IN EMR RESPIRATORY TREATMENT: * ED - 4LNC RESPIRATORY FLOW SHEET * 05-13/05-14 3-4L NC - O2 SAT 93-95% * 05-14 @ 1105 - 15L/MIN ON VENTURI MASK - O2 SAT 97% 05-13 CARDIOLOGY CONSULT 05-13 ECHO 05-14 PALLIATIVE CONSULT THANK YOU, LUPE (This form is maintained as a part of the permanent medical record) 2014 [employer]. All Rights Reserved Lupe Niño RN, BS [email or web address] Cell Acute Respiratory Failure: ABG pH < 7.35 or > 7.45; Decreased oxygen saturation (<90% room air or < 95% on oxygen); PCO2 > 50 mm Hg; PO2 < 60 mm Hg; Labored or rapid respirations ARDS: Dx Criteria [[place] ARDS]: Respiratory symptoms within one week of a known clinical insult (e.g. shock, infection, surgery, trauma) Bilateral opacities in CXR/Chest CT not due to CHF or fluid MTDD
--- NOTE | 2019-05-17 12:24 | EKG ---
Test Reason : Blood Pressure : / mmHG Vent. Rate : 086 BPM Atrial Rate : 086 BPM P-R Int : 150 ms QRS Dur : 080 ms QT Int : 386 ms P-R-T Axes : 091 -53 129 degrees QTc Int : 461 ms Sinus rhythm with Premature atrial complexes Left axis deviation Anteroseptal infarct , age undetermined Abnormal ECG Confirmed by ARTUR MCADAMS ([id number]), makeup editor ELLIOT PATRICK ([id number]) on 05/17/2019 12:23:45 PM Referred By: Confirmed By:ARTUR Jacobo
== END 2019-05-15 22:00 | disposition hospice, inpatient (51) | DRG 291 ==
LOC: ERS 19:29 → ERHOLD 21:52 → 2SE 05-14 00:20
PROVIDERS: ADMIT Internal Medicine; ATTEND Internal Medicine
DX: I13.0 Hypertensive heart and chronic kidney disease with heart failure and stage 1 through stage 4 chronic kidney disease, or unspecified chronic kidney disease (principal); I50.23 Acute on chronic systolic (congestive) heart failure; J44.1 Chronic obstructive pulmonary disease with (acute) exacerbation; I24.8 Other forms of acute ischemic heart disease; N17.9 Acute kidney failure, unspecified; I35.0 Nonrheumatic aortic (valve) stenosis; E86.0 Dehydration; N18.3 Chronic kidney disease, stage 3 (moderate); I73.9 Peripheral vascular disease, unspecified; I48.91 Unspecified atrial fibrillation; E78.00 Pure hypercholesterolemia, unspecified; R09.02 Hypoxemia; I25.10 Atherosclerotic heart disease of native coronary artery without angina pectoris; E11.22 Type 2 diabetes mellitus with diabetic chronic kidney disease; F32.9 Major depressive disorder, single episode, unspecified; F17.210 Nicotine dependence, cigarettes, uncomplicated; Z90.710 Acquired absence of both cervix and uterus; Z88.6 Allergy status to analgesic agent; Z88.8 Allergy status to other drugs, medicaments and biological substances; Z90.49 Acquired absence of other specified parts of digestive tract; Z79.01 Long term (current) use of anticoagulants; Z79.4 Long term (current) use of insulin
CPT/HCPCS: 36415; 36416; 71045; 80048; 80053; 82553; 83036; 83880; 84145; 84484; 85025; 87804; 93005; 93010; 93306; 93798; 94640; 96374; J1650; J1815; J1940; J7512; J7611; J7620